=== PATIENT | female | born 1935 | race Caucasian/White ===

== ENCOUNTER 2018-08-09 06:26 | Emergency (ER) | payer MEDICARE, BC ==
[2018-08-09 06:31] VITALS: BP 166/84
[2018-08-09] MEDS ORDERED: Oxymetazoline 0.05% Nasal Spray 15 ML Bottle NAS ONE (07:08)
--- NOTE | 2018-08-09 07:13 | EDM.PDOC ---
ED HPI GENERAL MEDICAL PROBLEM - General Chief Complaint: ENT Problem Stated Complaint: [facility] Time Seen by Provider: 08/09/18 07:02 Source of Information: Reports: Patient History Limitations: Reports: No Limitations - History of Present Illness INITIAL COMMENTS - FREE TEXT/NARRATIVE: 83-year-old female presents to the ED with bleeding from the left naris. She states that she blew her nose fairly hard about 0530 hrs. this morning and it started bleeding would not stop. She's had similar events over the last 2-3 days with nasal growing causing some transient bleeding but she's always been able to get it stopped. She takes baby aspirin only per day. She is relatively hypotensive at the time seen in the ER. She reports blood is running down the back of her throat. He also will run out the right side of her nares at times. Denies any nausea or vomiting. No recent nasal surgery. She reports she has been bothered by cold and sinus congestion for the last 10 days Onset: Today Onset Date: 08/09/18 Onset Time: 05:30 Duration: Minutes: Location: Reports: Face (Left anterior nosebleed.) Quality: Reports: Other Severity: Moderate (No pain) Improves with: Reports: None, Other (Nasal clamp) Worsens with: Reports: None Context: Reports: Other (Spontaneous anterior nasal hemorrhage after blowing her nose hard this morning). Denies: Activity, Exercise, Lifting, Sick Contact , Trauma Associated Symptoms: Reports: No Other Symptoms Treatments RN UTILIZATION MANAGEMENT UM: Reports: Other (see below) (None.) - Related Data Allergies Allergy/AdvReac Type Severity Reaction Status Date / Time Iodinated Contrast- Oral and Allergy Swelling Verified 08/09/18 06:48 IV Dye lidocaine Allergy Swelling Verified 08/09/18 06:31 Penicillins Allergy Hives Verified 08/09/18 06:31 eggs Allergy Hives Uncoded 03/25/15 14:32 Home Meds: Home Meds Aspirin [Lo-Dose Aspirin EC] 81 mg PO DAILY 08/09/18 [History] Azithromycin [Zithromax] 250 mg PO DAILY #8 tab 08/09/18 [Rx] Bacitracin/Polymyxin B Sulfate [Polysporin Ointment] 15 gm TP DAILY #1 tube [Rx] Diltiazem HCl [Diltiazem ER] 120 mg PO DAILY 08/09/18 [History] Levothyroxine [Synthroid] 88 mcg PO ACBREAKFAST 08/09/18 [History] Vit C/E/Zn/Coppr/Lutein/Zeaxan [Preservision Areds 2 Softgel] 1 each PO DAILY [History] atorvaSTATin Calcium [Atorvastatin Calcium] 20 mg PO DAILY 08/09/18 [History] Past Medical History Cardiovascular History: Reports: High Cholesterol Respiratory History: Reports: Sleep Apnea Gastrointestinal History: Reports: GERD Other [employer] History: hysterectomy Endocrine/Metabolic History: Reports: Hypothyroidism - Past Surgical History Female Surgical History: Reports: Hysterectomy Social & Family History - Tobacco Use Smoking Status *Q: Current Status Unknown - Living Situation & Occupation Living situation: Reports: Occupation: Retired ED ROS ENT - Review of Systems Review Of Systems: See Below Constitutional: Reports: Fatigue, Decreased Appetite. Denies: Fever, Chills, Malaise, Weight Loss HEENT: Reports: Nosebleed (See history of present illness) Respiratory: Reports: Shortness of Breath (Mild CB DD by history), Cough Cardiovascular: Reports: Blood Pressure Problem. Denies: Chest Pain, Claudication, Dyspnea on Exertion, Edema, Lightheadedness, Orthopnea (Does have elevated blood pressure chronically) Endocrine: Reports: Fatigue GI/Abdominal: Reports: Constipation (Occasional problems), Other : Reports: Frequency (GERD.), Incontinence Musculoskeletal: Reports: Joint Pain (Urge and stress components arthritic changes in knees hips neck low back shoulders at times) Skin: Reports: No Symptoms Neurological: Reports: No Symptoms Psychiatric: Reports: No Symptoms Hematologic/Lymphatic: Reports: No Symptoms Immunologic: Reports: No Symptoms ED EXAM, ENT - Physical Exam Exam: See Below Exam Limited By: No Limitations General Appearance: Alert, Anxious, Mild Distress, Other (Has a nasal clamp in place and using a face cloth to wipe of blood coming from the left naris. Vital signs reveal resting pulse of 10 9/m. BP is elevated 166/84. O2 sats are 93% on room air.) Eye Exam: Bilateral Eye: Normal Inspection Nose: Active Bleeding (There is very active bleeding coming from the left nasal septum. The source of bleeding is not apparent because of the amount of blood present. No blood noted in the right anterior and posterior nares. There is blood running down the posterior oropharynx on the left side.) Mouth/Throat: Other Head: Atraumatic (Fresh blood running down the left posterior oropharynx.), Normocephalic Neck: Normal Inspection, Supple, Non-Tender, Full Range of Motion. No: Lymphadenopathy (L), Lymphadenopathy (R) Respiratory/Chest: Respiratory Distress (Mild tachypnea), Decreased Breath Sounds (Breasts cells are minimally decreased in both bases.) Cardiovascular: Regular Rate, Rhythm, No Edema, No Gallop, No Murmur, No Rub Back: Normal Inspection, Full Range of Motion. No: CVA Tenderness (L), CVA Tenderness (R) Extremities: Normal Inspection, Normal Range of Motion, Non-Tender, No Pedal Edema Neurological: Alert, Oriented, CN II-XII Intact, Normal Cognition Psychiatric: Anxious Skin: Warm, Dry (Mild anxious), Intact, Normal Color, No Rash ED ENT PROCEDURES - Epistaxis Procedure Indication: Epistaxis, Uncontrolled Recent anticoagulants/antiplatlets: No Uncontrolled HTN: No Recent septal/nasal surgery: No Site of bleeding: Left Nare, Anterior Topical Meds: Topical Cocaine (Mixed with Afrin. Nose is back for one half hour with Afrin/cocaine-soaked [place] to bring the bleeding under control. In the nasal septum was cauterized with silver nitrate and brought the bleeding under control) Chemical cautery: Silver Nitrate Topical EKG INTERPRETATION EKG Date: 08/09/18 Time: 06:38 Rhythm: NSR Rate (Beats/Min): 96 [place]: Normal P-Wave: Enlarged (Consider left atrial hypertrophy pattern) QRS: Other (Decreased reveals each throughout both limb and precordial leads compose COPD pattern. There is early R-wave transition V2 suggesting right ventricular hypertrophy pattern versus septal hypertrophy. 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.) ST-T: Other (There is mild flattening of the T-wave in lead 3 nonspecific finding) QT: Normal EKG Interpretation Comments: Abnormal ECG Course - Vital Signs Last Recorded V/S: Last Vital Signs Temp 36.6 C 08/09/18 06:28 Pulse 109 H 08/09/18 06:28 Resp 19 08/09/18 06:28 BP 166/84 H 08/09/18 06:28 Pulse Ox 93 L 08/09/18 06:28 - Orders/Labs/Meds Meds: Medications Discontinued Medications Generic Name Dose Route Start Last Admin Trade Name Roger PRN Reason Stop Dose Admin Cocaine HCl 4 ml 08/09/18 07:08 08/09/18 07:15 Cocaine Hcl TOP 08/09/18 07:09 4 ml ONETIME ONE Administration Oxymetazoline HCl 15 ml 08/09/18 07:08 08/09/18 07:15 Afrin Original 0.05% Nasal [place] TEENA 08/09/18 07:09 15 ml ONETIME ONE Administration - Radiology Interpretation Free Text/Narrative:: 83-year-old lady presents to the ED with a left anterior nasal hemorrhage since 5:30 this morning. This occurred after blowing her nose aggressively. Bleeding off and on for the last 2-3 days. She apparently has a history of paroxysmal atrial fib. ECG this morning shows diffuse low voltage in both the precordial limb leads. She is in sinus rhythm. There is early R-wave transition in V2 suggesting right ventricular hypertrophy/septal hypertrophy pattern. 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 - Re-Assessments/Exams Free Text/Narrative Re-Assessment/Exam: 08/09/18 07:22 initial review of the nose showed active bleeding from the entire left nasal septum . I therefore packed the nose with [id number] Afrin and cocaine 4%. The back is to remain in place for the next 20-30 minutes and then will remove it and look to see if we can find a source to cauterize. 08/09/18 08:10: The Afrin/cocaine pack was removed. Bleeding has come under control and I could see where was coming from from the anterior nasal septum. This area was cauterized with silver nitrate. I will recheck her in 10 minutes time to make sure the bleeding has come under control. 08/09/18 08:32 no further bleeding is evident. Going to place the patient on a Z -Kobi she does have some sinus congestion with a cough. Use Polysporin ointment on the end of a Q-tip up in her nose every night at bedtime for the next week to try and prevent further nosebleeds. Follow-up as needed. Departure - Departure Time of Disposition: 08:32 Disposition: Home, Self-Care 01 Condition: Fair Clinical Impression: Epistaxis, recurrent, Bronchitis, Epistaxis Sinusitis, acute Qualifiers: Sinusitis location: maxillary Recurrence: non-recurrent Qualified Code(s): J01.00 - Acute maxillary sinusitis, unspecified - Discharge Information *PRESCRIPTION DRUG MONITORING PROGRAM REVIEWED*: Not Applicable *COPY OF PRESCRIPTION DRUG MONITORING REPORT IN PATIENT [place]ET[place]: Not Applicable Prescriptions: Azithromycin [Zithromax] 250 mg PO DAILY #8 tab Bacitracin/Polymyxin B Sulfate [Polysporin Ointment] 15 gm TP DAILY #1 tube Referrals: Delphine Perera MD [Primary Care Provider] - Forms: ED Department Discharge Additional Instructions: Evaluation in the emergency department today in regards to persistent bleeding from the left side of your nose since awakening this morning. Bleeding was substantial at the time of my initial assessment I could not tell where was coming from. Therefore the nose was packed with Afrin/cocaine packing for half hour to bring the bleeding under control which he did well. I was unable to visualize where the bleeding was coming from from the anterior nasal septum on the left side and this area was cauterized with silver nitrate. Try not to blow your nose or irritation nose in any fashion or form for the next [address] Polysporin ointment inside each side of your nose at bedtime for the next week with the aid of a Q-tip. Oral antibiotic is to be azithromycin 250 mg once daily for the next 8 days to clear up sinus infection. Colistin medication in her sleeping quarters may help as well prevent further bleeding. Of course return to the ED or follow-up with personal care physician if any further bleeding becomes occur
== END 2018-08-09 08:51 | disposition home or self-care (01) ==
LOC: JD.ED 06:26
DX: R04.0 Epistaxis (principal); J40 Bronchitis, not specified as acute or chronic; J01.00 Acute maxillary sinusitis, unspecified; E78.00 Pure hypercholesterolemia, unspecified; E03.9 Hypothyroidism, unspecified; K21.9 Gastro-esophageal reflux disease without esophagitis; Z88.0 Allergy status to penicillin; Z91.012 Allergy to eggs; Z79.82 Long term (current) use of aspirin; Z79.899 Other long term (current) drug therapy
CPT/HCPCS: 30901; 99283; A9270; 30905; 93010

== ENCOUNTER 2019-05-28 12:18 | Inpatient (IN) | payer MEDICARE, BC ==
[2019-05-28] MEDS ORDERED: Sodium Chloride 0.9% 10 ML Syringe FLUSH PRN (12:42)
[2019-05-28] MEDS ORDERED: Diltiazem 50 MG/10 ML SDV IVPUSH ONE ×5 (12:51→18:20)
[2019-05-28] MEDS: Sodium Chloride 0.9% 500 ML IV SCH ×2 (13:16→21:34)
[2019-05-28] MEDS ORDERED: Ondansetron 4 MG/2 ML SDV IVPUSH ONE ×2 (13:20→17:39)
--- NOTE | 2019-05-28 13:45 | EDM.PDOC ---
ED HPI GENERAL MEDICAL PROBLEM - General Chief Complaint: Gastrointestinal Problem Stated Complaint: HIGH BP/VOMITING Time Seen by Provider: 05/28/19 12:42 Source of Information: Reports: Patient, Family, RN Notes Reviewed - History of Present Illness INITIAL COMMENTS - FREE TEXT/NARRATIVE: 84-year-old lady has been brought in by daughter with symptoms of nausea vomiting status post hernia surgery 2 days ago. When hooked up to cardiac exercise specialist she was found to be in A. fib with RVR. Not aware of palpitations. Does have generalized weakness. No chest pain or shortness of breath. She has had A. fib or flutter at least once in the past. She had bilateral lower abdominal hernia surgery 2 days ago done as an outpatient [facility]. The surgery is reported to have gone well. She was released home later that day. She started with nausea last evening last evening, worse today. She had been eating small amounts of food and drinking fluids okay with very little intake today. Mild intermittent abdominal pain and cramping but no severe abdominal pain at this time. Treatments SPECIMEN COLLECTOR: Reports: Other (see below) Other Treatments SPECIMEN COLLECTOR: no morning meds today Right Abdomen Pain Score (Numeric/FACES): 5 - Related Data Allergies Allergy/AdvReac Type Severity Reaction Status Date / Time Iodinated Contrast Media Allergy Swelling Verified 08/09/18 06:48 [Iodinated Contrast- Oral and IV Dye] lidocaine Allergy Swelling Verified 08/09/18 06:31 Penicillins Allergy Hives Verified 08/09/18 06:31 eggs Allergy Hives Uncoded 03/25/15 14:32 Home Meds: Home Meds Aspirin [Lo-Dose Aspirin EC] 81 mg PO DAILY 08/09/18 [History] Levothyroxine [Synthroid] 100 mcg PO ACBREAKFAST 08/09/18 [History] dilTIAZem HCl [Diltiazem ER] 180 mg PO DAILY 08/09/18 [History] Acetaminophen [Tylenol Arthritis] 1 tab PO Q8H PRN 05/28/19 [History] Acetaminophen [Tylenol] 500 mg PO Q6H PRN 05/28/19 [History] Calcium Carb, Citrate/Vit D3 [Calcium + D3 ER Tablet] 2 tab PO BEDTIME 05/28/19 [History] Hydrocodone/Acetaminophen [Hydrocodon-Acetaminophen 5-325] 5 - 325 mg PO Q6H PRN 05/28/19 [History] Ibuprofen [Motrin] 200 mg PO Q6H PRN 05/28/19 [History] Multivitamins [Tab-A-Santiago] 1 tab PO DAILY 05/28/19 [History] Rosuvastatin Calcium [Crestor] 40 mg PO BEDTIME 05/28/19 [History] Past Medical History Cardiovascular History: Reports: Afib, High Cholesterol, Hypertension Respiratory History: Reports: Sleep Apnea Other Respiratory History: wears o2 at noc Gastrointestinal History: Reports: GERD Other MANAGER BEHAVIORAL History: hysterectomy Endocrine/Metabolic History: Reports: Hypothyroidism - Past Surgical History Female Surgical History: Reports: Hysterectomy Social & Family History - Tobacco Use Used Tobacco, but Quit: Yes Month/Year Tobacco Last Used: 6 yr - Caffeine Use Caffeine Use: Reports: Coffee - Recreational Drug Use Recreational Drug Use: No - Living Situation & Occupation Living situation: Reports: Occupation: Retired ED ROS GENERAL - Review of Systems Review Of Systems: See Below Constitutional: Denies: Fever, Chills, Diaphoresis HEENT: Reports: Other (Mouth does feel mildly dry). Denies: Throat Pain Respiratory: Reports: Shortness of Breath. Denies: Cough Cardiovascular: Denies: Chest Pain (Mild) GI/Abdominal: Reports: Abdominal Pain, Distension (Mild), Nausea (Mild intermittent), Vomiting. Denies: Diarrhea Musculoskeletal: Reports: No Symptoms Skin: Reports: No Symptoms Neurological: Reports: Weakness. Denies: Trouble Speaking (Analyzed) ED EXAM, GI/ABD - Physical Exam Exam: See Below General Appearance: Alert, Mild Distress Eyes: Bilateral: Normal Appearance Throat/Mouth: Other Head: Atraumatic (Oral mucosa is somewhat dry). No: Facial Swelling Neck: Supple, Full Range of Motion, Other Respiratory/Chest: No Respiratory Distress (No JVD), Lungs Clear, Normal Breath Sounds. No: Rales, Rhonchi, Wheezing Cardiovascular: Tachycardia, Irregularly Irregular GI/Abdominal Exam: Soft, Other. No: Guarding (Very mild diffuse tenderness), Rebound Extremities: Normal Inspection, Normal Range of Motion. No: Leg Pain, Increased Warmth, Redness Neurological: Alert, Oriented, No Motor/Sensory Deficits Skin Exam: Warm, Dry, Normal Color EKG INTERPRETATION EKG Date: 05/28/19 Rhythm: A-Fib [place]: Normal QRS: Other (Low voltage precordial leads) ST-T: Other (Mild ST changes) Course - Vital Signs Last Recorded V/S: Last Vital Signs Temp 97.5 F 05/28/19 12:36 Pulse 191 H 05/28/19 12:36 Resp 22 H 05/28/19 12:36 BP 153/108 H 05/28/19 12:36 Pulse Ox 90 L 05/28/19 12:36 - Orders/Labs/Meds Orders: Active Orders 24 hr Category Date Time Status Admission Status [Patient Status] [ADT] Routine ADT 05/28/19 19:51 Active EKG 12 Lead [EKG Documentation Completion] [RC] STAT Care 05/28/19 12:42 Active Peripheral IV Care [RC] . DIRECTED Care 05/28/19 12:43 Active Diltiazem 125 mg Med 05/28/19 19:15 Active Sodium Chloride 0.9% [Normal Saline] 100 ml IV TITRATE Scopolamine [Transderm-Scop] Med 05/28/19 19:55 Active 1.5 mg TRDERM Q72H PRN Sodium Chloride 0.9% [Normal Saline] 500 ml Med 05/28/19 19:53 Active IV .BOLUS Sodium Chloride 0.9% [Normal Saline] 500 ml Med 05/28/19 13:15 Active IV ASDIRECTED Sodium Chloride 0.9% [Saline Flush] Med 05/28/19 12:42 Active 10 ml FLUSH ASDIRECTED PRN Peripheral IV Insertion Adult [OM.PC] Stat Oth 05/28/19 12:42 Ordered Medication Orders Sodium Chloride (Normal Saline) 500 mls @ 999 mls/hr IV ASDIRECTED AREN Last Admin: 05/28/19 13:16 Dose: 999 mls/hr Diltiazem HCl 125 mg/ Sodium (Chloride) 125 mls @ 5 mls/hr IV TITRATE AREN; Protocol Last Admin: 05/28/19 19:34 Dose: 5 mg/hr, 5 mls/hr Sodium Chloride (Normal Saline) 500 mls @ 500 mls/hr IV .BOLUS ONE Stop: 05/28/19 20:52 Last Admin: 05/28/19 20:04 Dose: 500 mls/hr Scopolamine (Transderm-Scop) 1.5 mg TRDERM Q72H PRN PRN Reason: Nausea/Vomiting Last Admin: 05/28/19 20:08 Dose: 1.5 mg Sodium Chloride (Saline Flush) 10 ml FLUSH ASDIRECTED PRN PRN Reason: Keep Vein Open Last Admin: 05/28/19 12:57 Dose: 10 ml Labs: Laboratory Tests 05/28/19 05/28/19 05/28/19 Range/Units 12:40 12:40 12:40 WBC 14.45 H (3.98-10.04) K/mm3 RBC 4.82 (3.98-5.22) M/mm3 Hgb 14.4 (11.2-15.7) gm/dl Hct 44.8 (34.1-44.9) % MCV 92.9 (79.4-94.8) fl MCH 29.9 (25.6-32.2) pg MCHC 32.1 L (32.2-35.5) g/dl RDW Std Deviation 50.2 H (36.4-46.3) fL Plt Count 396 H (182-369) K/mm3 MPV 10.2 (9.4-12.3) fl Neut % (Auto) 75.9 H (34.0-71.1) % Lymph % (Auto) 7.6 L (19.3-51.7) % [place] % (Auto) 15.9 H (4.7-12.5) % Eos % (Auto) 0.3 L (0.7-5.8) Baso % (Auto) 0.1 (0.1-1.2) % Neut # (Auto) 10.95 H (1.56-6.13) K/mm3 Lymph # (Auto) 1.10 L (1.18-3.74) K/mm3 [place] # (Auto) 2.30 H (0.24-0.36) K/mm3 Eos # (Auto) 0.05 (0.04-0.36) K/mm3 Baso # (Auto) 0.02 (0.01-0.08) K/mm3 Manual Slide Review Abnormal smear PT 10.9 (9.7-12.0) SECONDS INR 1.00 Sodium 139 (136-145) mEq/L Potassium 3.9 (3.5-5.1) mEq/L Chloride 96 L (98-107) mEq/L Carbon Dioxide 31 (21-32) mEq/L Anion Gap 15.9 H (5-15) BUN 24 H (7-18) mg/dL Creatinine 1.6 H (0.55-1.02) mg/dL Est Cr Clr Drug Dosing 20.88 mL/min Estimated GFR (MDRD) 31 (>60) mL/min BUN/Creatinine Ratio 15.0 (14-18) Glucose 170 H (83-115) mg/dL Calcium 10.4 H (8.5-10.1) mg/dL Total Bilirubin 0.7 (0.2-1.0) mg/dL AST 19 (15-37) U/L ALT 21 (14-59) U/L Alkaline Phosphatase 75 (46-116) U/L Troponin I < 0.017 (0.00-0.056) ng/mL NT-Pro-B Natriuret Pep (0-450) pg/mL Total Protein 7.9 (6.4-8.2) g/dl Albumin 4.1 (3.4-5.0) g/dl Globulin 3.8 gm/dL Albumin/Globulin Ratio 1.1 (1-2) Lipase (73-393) U/L 05/28/19 05/28/19 Range/Units 12:40 12:40 WBC (3.98-10.04) K/mm3 RBC (3.98-5.22) M/mm3 Hgb (11.2-15.7) gm/dl Hct (34.1-44.9) % MCV (79.4-94.8) fl MCH (25.6-32.2) pg MCHC (32.2-35.5) g/dl RDW Std Deviation (36.4-46.3) fL Plt Count (182-369) K/mm3 MPV (9.4-12.3) fl Neut % (Auto) (34.0-71.1) % Lymph % (Auto) (19.3-51.7) % [place] % (Auto) (4.7-12.5) % Eos % (Auto) (0.7-5.8) Baso % (Auto) (0.1-1.2) % Neut # (Auto) (1.56-6.13) K/mm3 Lymph # (Auto) (1.18-3.74) K/mm3 [place] # (Auto) (0.24-0.36) K/mm3 Eos # (Auto) (0.04-0.36) K/mm3 Baso # (Auto) (0.01-0.08) K/mm3 Manual Slide Review PT (9.7-12.0) SECONDS INR Sodium (136-145) mEq/L Potassium (3.5-5.1) mEq/L Chloride (98-107) mEq/L Carbon Dioxide (21-32) mEq/L Anion Gap (5-15) BUN (7-18) mg/dL Creatinine (0.55-1.02) mg/dL Est Cr Clr Drug Dosing mL/min Estimated GFR (MDRD) (>60) mL/min BUN/Creatinine Ratio (14-18) Glucose (83-115) mg/dL Calcium (8.5-10.1) mg/dL Total Bilirubin (0.2-1.0) mg/dL AST (15-37) U/L ALT (14-59) U/L Alkaline Phosphatase (46-116) U/L Troponin I (0.00-0.056) ng/mL NT-Pro-B Natriuret Pep 765 H (0-450) pg/mL Total Protein (6.4-8.2) g/dl Albumin (3.4-5.0) g/dl Globulin gm/dL Albumin/Globulin Ratio (1-2) Lipase 136 (73-393) U/L Meds: Medications Generic Name Dose Route Start Last Admin Trade Name Freq PRN Reason Stop Dose Admin Sodium Chloride 500 mls @ 999 mls/hr 05/28/19 13:15 05/28/19 13:16 Normal Saline IV 999 mls/hr ASDIRECTED AREN Administration Diltiazem HCl 125 mg/ Sodium 125 mls @ 5 mls/hr 05/28/19 19:15 05/28/19 19:34 Chloride IV 5 mg/hr TITRATE AREN 5 mls/hr Administration Protocol 5 MG/HR Sodium Chloride 500 mls @ 500 mls/hr 05/28/19 19:53 05/28/19 20:04 Normal Saline IV 05/28/19 20:52 500 mls/hr .BOLUS ONE Administration Scopolamine 1.5 mg 05/28/19 19:55 05/28/19 20:08 Transderm-Scop TRDERM 1.5 mg Q72H PRN Administration Nausea/Vomiting Sodium Chloride 10 ml 05/28/19 12:42 05/28/19 12:57 Saline Flush FLUSH 10 ml ASDIRECTED PRN Administration Keep Vein Open Discontinued Medications Generic Name Dose Route Start Last Admin Trade Name Freq PRN Reason Stop Dose Admin Diltiazem HCl 20 mg 05/28/19 12:51 05/28/19 12:56 Cardizem IVPUSH 05/28/19 12:52 20 mg ONETIME ONE Administration Diltiazem HCl 5 mg 05/28/19 14:05 05/28/19 14:13 Cardizem IVPUSH 05/28/19 14:06 5 mg ONETIME ONE Administration Diltiazem HCl 5 mg 05/28/19 14:48 05/28/19 14:48 Cardizem IVPUSH 05/28/19 14:49 5 mg ONETIME ONE Administration Diltiazem HCl 5 mg 05/28/19 15:35 05/28/19 15:40 Cardizem IVPUSH 05/28/19 15:36 5 mg ONETIME ONE Administration Diltiazem HCl 180 mg 05/28/19 17:19 05/28/19 18:26 Cardizem Cd PO 05/28/19 17:20 Not Given ONETIME ONE Diltiazem HCl 10 mg 05/28/19 18:20 05/28/19 18:26 Cardizem IVPUSH 05/28/19 18:21 10 mg ONETIME ONE Administration Metoclopramide HCl 2.5 mg 05/28/19 15:35 05/28/19 15:45 Reglan IVPUSH 05/28/19 15:36 2.5 mg ONETIME ONE Administration Ondansetron HCl 4 mg 05/28/19 13:20 05/28/19 13:25 Zofran IVPUSH 05/28/19 13:21 4 mg ONETIME ONE Administration Ondansetron HCl 4 mg 05/28/19 17:39 05/28/19 17:43 Zofran IVPUSH 05/28/19 17:40 4 mg ONETIME ONE Administration - Re-Assessments/Exams Free Text/Narrative Re-Assessment/Exam: 05/28/19 13:58 Patient did come in with A. fib RVR with heart rates running 168 to the 180s. Initial blood pressure was good in the 150s systolic range but then dropped immediately down to 110 and at one point around 86 systolic after the initial 5 mg diltiazem IV. Fluid bolus of normal saline 500 male was started and blood pressure did immediately stabilize. Heart rate has gradually slowed down to the 110-120 range. 14:00. patient has converted back to normal sinus rhythm, rate 106-110. We'll repeat EKG at this time. 16:00 nurse's have slowly given more diltiazem IV, her heart rate did slow to as low as 98 but now back into the 105-110 range. We are going to try drinking fluids take her oral Cardizem if possible to keep that working for her. 18:00. She did take a few small sips of water, then vomited immediately after drinking some Jell-O. She appear to have an ileus, does not look like it is going to be safe for her to go home. Flat and upright of her abdomen has been done which does not show air-fluid levels. Continues to have no significant abdominal pain while here in the ED. Rate now has gone back up to the 110 to 1: 15 range. Have ordered another 10 mg diltiazam IV. She may need to be put on a slow diltiazem drip until able to tolerate oral fluids and meds. 05/28/19 19:09. Rate has slowed down to about 100 after diltiazem 10 mg IV. As noted above she has not been able to take even Jell-O without vomiting so it doesn't look like she'll be able to take her Cardizem today. Did go back up to about 115 after the initial dosage of Cardizem IV. Not clear if she really did convert back to sinus rhythm or if this is flutter with the 2-1 and variable block. This is now looking more like flutter with her being unable to maintain a rate below 100. Therefore Cardizem drip at 5 mg per hour will be started at this time. Will be admitted to ICU for further treatment. Departure - Departure Time of Disposition: 19:12 Disposition: Admitted As Inpatient 64 Condition: Serious Clinical Impression: Vomiting, Ileus, Atrial flutter with rapid ventricular response - Discharge Information Referrals: Delphine Perera MD [Primary Care Provider] - Forms: ED Department Discharge Sepsis Event Note - Evaluation Sepsis Screening Result: No Definite Risk - Focused Exam Vital Signs: Vital Signs Temp Pulse Resp BP Pulse Ox 05/28/19 12:36 97.5 F 191 H 22 H 153/108 H 90 L Date Exam was Performed: 05/28/19 Time Exam was Performed: 20:12 ED Communication - Discussed Case With (1) Discussed Case With (1): Admitting Provider (Dr Michel, decision to admit at about 18:30.) - My Orders Last 24 Hours: My Active Orders 05/28/19 12:42 EKG 12 Lead [EKG Documentation Completion] [RC] STAT Sodium Chloride 0.9% [Saline Flush] 10 ml FLUSH ASDIRECTED PRN Peripheral IV Insertion Adult [OM.PC] Stat 05/28/19 12:43 Peripheral IV Care [RC] . DIRECTED 05/28/19 13:15 Sodium Chloride 0.9% [Normal Saline] 500 ml IV ASDIRECTED 05/28/19 19:15 Diltiazem 125 mg Sodium Chloride 0.9% [Normal Saline] 100 ml IV TITRATE 05/28/19 19:51 Admission Status [Patient Status] [ADT] Routine - Assessment/Plan Last 24 Hours: My Active Orders 05/28/19 12:42 EKG 12 Lead [EKG Documentation Completion] [RC] STAT Sodium Chloride 0.9% [Saline Flush] 10 ml FLUSH ASDIRECTED PRN Peripheral IV Insertion Adult [OM.PC] Stat 05/28/19 12:43 Peripheral IV Care [RC] . DIRECTED 05/28/19 13:15 Sodium Chloride 0.9% [Normal Saline] 500 ml IV ASDIRECTED 05/28/19 19:15 Diltiazem 125 mg Sodium Chloride 0.9% [Normal Saline] 100 ml IV TITRATE 05/28/19 19:51 Admission Status [Patient Status] [ADT] Routine
--- NOTE | 2019-05-28 14:19 | CR ---
Chest: Portable view of the chest was obtained. Comparison: Prior chest x-ray of 07/16/13. Slight atelectasis within the right lung base is seen. Lungs otherwise are clear. Heart is mildly enlarged. Tortuous thoracic aorta is seen. Bony structures are grossly intact. Impression: 1. Mild right basilar atelectasis. 2. Cardiomegaly. 3. Nothing acute is appreciated on portable chest x-ray. Diagnostic code #2 This report was dictated in [place] Standard Time
--- NOTE | 2019-05-28 14:45 | CR ---
Abdomen: Supine and upright views of the abdomen were obtained. Comparison: Previous abdominal x-ray of 07/13/13. Vascular calcification is noted. Bowel gas pattern appears normal. Calcifications are seen within the pelvis most likely representing phleboliths. Equivocal calcification within the upper right kidney possibly due to nonobstructing stone. No free air is identified. Bony structures appear within normal limits for the patient's age. Impression: 1. Findings as noted above. 2. Nothing acute is appreciated. Diagnostic code #2 This report was dictated in [place] Standard Time
[2019-05-28] MEDS ORDERED: Metoclopramide 10 MG/2 ML SDV IVPUSH ONE (15:35)
[2019-05-28] MEDS ORDERED: Diltiazem 180 MG Cap.CD PO ONE (17:19)
[2019-05-28] MEDS ORDERED: Diltiazem 125 MG in Sodium Chloride 0.9% 100 ML IV SCH (19:15)
[2019-05-28] MEDS ORDERED: Sodium Chloride 0.9% 500 ML IV ONE (19:53)
[2019-05-28] MEDS ORDERED: Scopolamine 1.5 MG Transdermal Patch TRDERM PRN (19:55)
[2019-05-28] MEDS ORDERED: Acetaminophen 650 MG Supp RECTAL PRN (20:32)
[2019-05-28] MEDS ORDERED: Sodium Chloride 0.9% 1,000 ML IV SCH (20:45)
--- NOTE | 2019-05-28 20:50 | PCM.HP.2 ---
H&P History of Present Illness - General Date of Service: 05/28/19 Admit Problem/Dx: Admission Diagnosis/Problem Admission Diagnosis/Problem Atrial flutter with rapid ventricular response - History of Present Illness Initial Comments - Free Text/Narative: 84-year-old female post to ventral abdominal wall surgeries ventral hernia repair x2 2 days ago presented to the emergency room with 1 day of nausea and vomiting. Patient states that she did well on Saturday, the day of surgery, and that evening. Saturday, yesterday she developed nausea and vomiting. She states she could not keep anything down. She denies any fever or chills. She states that her abdominal pain is mild and more like a soreness. When she presented to the emergency room she was found to be in atrial fibrillation. Patient has a history of postsurgical atrial fibrillation after procedure 3 years ago. Patient was found here to be in A. fib with RVR with a ventricular rate of 188 bpm. Patient was given multiple doses of IV diltiazem with ultimate conversion back to sinus rhythm but continue rate between 106 and 115. Patient was then placed on a Cardizem drip. She was given 1 500 mL bolus and the rest of the bag was run while in the emergency room. Patient was unable to even keep down Jell-O and it was decided to admit her. Patient is on nocturnal O2 and did take 2 ibuprofen yesterday. Patient states that she is passing gas occasionally. She quit smoking in 2011. She smoked 1/2 pack/day for approximately 50 years. She has been diagnosed with COPD. She drinks a couple of beers a night and her last drink was Saturday, 4 days ago. Emergency room labs: WBC 14.45, hemoglobin 14.4, platelets 396, sodium 139, potassium 3.9, chloride 96, bicarb 31, anion gap 16, BUN 24, creatinine 1.6, troponin less than 0.017, lipase 136, proBNP 765. Abdominal x-ray findings show normal bowel gas pattern. Right Abdomen Pain Score (Numeric/FACES): 5 - Related Data Allergies/Adverse Reactions: Allergies Allergy/AdvReac Type Severity Reaction Status Date / Time Iodinated Contrast Media Allergy Swelling Verified 05/28/19 21:29 [Iodinated Contrast- Oral and IV Dye] lidocaine Allergy Swelling Verified 05/28/19 21:29 Penicillins Allergy Hives Verified 05/28/19 21:29 eggs Allergy Hives Uncoded 05/28/19 21:29 Home Medications: Home Meds Aspirin [Lo-Dose Aspirin EC] 81 mg PO DAILY 08/09/18 [History] Levothyroxine [Synthroid] 100 mcg PO ACBREAKFAST 08/09/18 [History] dilTIAZem HCl [Diltiazem ER] 180 mg PO DAILY 08/09/18 [History] Acetaminophen [Tylenol Arthritis] 1 tab PO Q8H PRN 05/28/19 [History] Acetaminophen [Tylenol] 500 mg PO Q6H PRN 05/28/19 [History] Calcium Carb, Citrate/Vit D3 [Calcium + D3 ER Tablet] 2 tab PO BEDTIME 05/28/19 [History] Hydrocodone/Acetaminophen [Hydrocodon-Acetaminophen 5-325] 5 - 325 mg PO Q6H PRN 05/28/19 [History] Ibuprofen [Motrin] 200 mg PO Q6H PRN 05/28/19 [History] Multivitamins [Tab-A-[place]] 1 tab PO DAILY 05/28/19 [History] Rosuvastatin Calcium [Crestor] 40 mg PO BEDTIME 05/28/19 [History] Past Medical History Cardiovascular History: Reports: Afib, High Cholesterol, Hypertension Respiratory History: Reports: Sleep Apnea Other Respiratory History: wears o2 at [facility] Gastrointestinal History: Reports: GERD Other OB/BYN History: hysterectomy Endocrine/Metabolic History: Reports: Hypothyroidism - Past Surgical History Female Surgical History: Reports: Hysterectomy Social & Family History - Tobacco Use Used Tobacco, but Quit: Yes Month/Year Tobacco Last Used: 6 yr - Caffeine Use Caffeine Use: Reports: Coffee - Recreational Drug Use Recreational Drug Use: No - Living Situation & Occupation Living situation: Reports: Occupation: Retired H&P Review of Systems - Review of Systems: Review Of Systems: Comprehensive ROS is negative, except as noted in HPI. Exam - Exam Exam: See Below - Vital Signs Vital Signs: Last Vital Signs Temp 97.5 F 05/28/19 12:36 Pulse 191 H 05/28/19 12:36 Resp 22 H 05/28/19 12:36 BP 153/108 H 05/28/19 12:36 Pulse Ox 90 L 05/28/19 12:36 Weight: 168 lb - Exam Quality Assessment: Supplemental Oxygen General: Alert, Oriented HEENT: Conjunctiva Clear, Normal Nasal Septum, Posterior Pharynx Clear Neck: Supple, Trachea Midline, 2 Lungs: Clear to Auscultation, Normal Respiratory Effort Cardiovascular: Irregular Rhythm, Tachycardia GI/Abdominal Exam: Soft, No Organomegaly, No Distention, Tender (Mild diffuse tenderness without guarding or rebound.), Abnormal Bowel Sounds (Diminished) Skin: Warm, Dry, Intact Neuro Extensive - Mental Status: Alert, Oriented x3, Normal Mood/Affect, Normal Cognition, Memory Intact Neuro Extensive - Motor, Sensory, Reflexes: CN II-XII Intact Psychiatric: Alert, Normal Affect, Normal Mood - Patient Data Lab Results Last 24 hrs: Laboratory Results - last 24 hr 05/28/19 05/28/19 05/28/19 Range/Units 12:40 12:40 12:40 WBC 14.45 H (3.98-10.04) K/mm3 RBC 4.82 (3.98-5.22) M/mm3 Hgb 14.4 (11.2-15.7) gm/dl Hct 44.8 (34.1-44.9) % MCV 92.9 (79.4-94.8) fl MCH 29.9 (25.6-32.2) pg MCHC 32.1 L (32.2-35.5) g/dl RDW Std Deviation 50.2 H (36.4-46.3) fL Plt Count 396 H (182-369) K/mm3 MPV 10.2 (9.4-12.3) fl Neut % (Auto) 75.9 H (34.0-71.1) % Lymph % (Auto) 7.6 L (19.3-51.7) % [place] % (Auto) 15.9 H (4.7-12.5) % Eos % (Auto) 0.3 L (0.7-5.8) Baso % (Auto) 0.1 (0.1-1.2) % Neut # (Auto) 10.95 H (1.56-6.13) K/mm3 Lymph # (Auto) 1.10 L (1.18-3.74) K/mm3 [place] # (Auto) 2.30 H (0.24-0.36) K/mm3 Eos # (Auto) 0.05 (0.04-0.36) K/mm3 Baso # (Auto) 0.02 (0.01-0.08) K/mm3 Manual Slide Review Abnormal smear PT 10.9 (9.7-12.0) SECONDS INR 1.00 Sodium 139 (136-145) mEq/L Potassium 3.9 (3.5-5.1) mEq/L Chloride 96 L (98-107) mEq/L Carbon Dioxide 31 (21-32) mEq/L Anion Gap 15.9 H (5-15) BUN 24 H (7-18) mg/dL Creatinine 1.6 H (0.55-1.02) mg/dL Est Cr Clr Drug Dosing 20.88 mL/min Estimated GFR (MDRD) 31 (>60) mL/min BUN/Creatinine Ratio 15.0 (14-18) Glucose 170 H (83-115) mg/dL Calcium 10.4 H (8.5-10.1) mg/dL Total Bilirubin 0.7 (0.2-1.0) mg/dL AST 19 (15-37) U/L ALT 21 (14-59) U/L Alkaline Phosphatase 75 (46-116) U/L Troponin I < 0.017 (0.00-0.056) ng/mL NT-Pro-B Natriuret Pep (0-450) pg/mL Total Protein 7.9 (6.4-8.2) g/dl Albumin 4.1 (3.4-5.0) g/dl Globulin 3.8 gm/dL Albumin/Globulin Ratio 1.1 (1-2) Lipase (73-393) U/L 05/28/19 05/28/19 Range/Units 12:40 12:40 WBC (3.98-10.04) K/mm3 RBC (3.98-5.22) M/mm3 Hgb (11.2-15.7) gm/dl Hct (34.1-44.9) % MCV (79.4-94.8) fl MCH (25.6-32.2) pg MCHC (32.2-35.5) g/dl RDW Std Deviation (36.4-46.3) fL Plt Count (182-369) K/mm3 MPV (9.4-12.3) fl Neut % (Auto) (34.0-71.1) % Lymph % (Auto) (19.3-51.7) % [place] % (Auto) (4.7-12.5) % Eos % (Auto) (0.7-5.8) Baso % (Auto) (0.1-1.2) % Neut # (Auto) (1.56-6.13) K/mm3 Lymph # (Auto) (1.18-3.74) K/mm3 [place] # (Auto) (0.24-0.36) K/mm3 Eos # (Auto) (0.04-0.36) K/mm3 Baso # (Auto) (0.01-0.08) K/mm3 Manual Slide Review PT (9.7-12.0) SECONDS INR Sodium (136-145) mEq/L Potassium (3.5-5.1) mEq/L Chloride (98-107) mEq/L Carbon Dioxide (21-32) mEq/L Anion Gap (5-15) BUN (7-18) mg/dL Creatinine (0.55-1.02) mg/dL Est Cr Clr Drug Dosing mL/min Estimated GFR (MDRD) (>60) mL/min BUN/Creatinine Ratio (14-18) Glucose (83-115) mg/dL Calcium (8.5-10.1) mg/dL Total Bilirubin (0.2-1.0) mg/dL AST (15-37) U/L ALT (14-59) U/L Alkaline Phosphatase (46-116) U/L Troponin I (0.00-0.056) ng/mL NT-Pro-B Natriuret Pep 765 H (0-450) pg/mL Total Protein (6.4-8.2) g/dl Albumin (3.4-5.0) g/dl Globulin gm/dL Albumin/Globulin Ratio (1-2) Lipase 136 (73-393) U/L Result Diagrams: 05/28/19 12:40 05/28/19 12:40 Imaging Impressions Last 24 hrs: Abdominal x-ray findings show normal bowel gas pattern. EKG INTERPRETATION EKG Date: 05/28/19 Time: 19:10 Rhythm: NSR Rate (Beats/Min): 102 [place]: Normal P-Wave: Present QRS: Other (RSR prime) Sepsis Event Note - Evaluation Sepsis Screening Result: No Definite Risk - Focused Exam Vital Signs: Vital Signs Temp Pulse Resp BP Pulse Ox 05/28/19 12:36 97.5 F 191 H 22 H 153/108 H 90 L Date Exam was Performed: 05/28/19 Time Exam was Performed: 21:49 Problem List Initiated/Reviewed/Updated: Yes Orders Last 24hrs: Active Orders 24 hr Category Date Time Status Admission Status [Patient Status] [ADT] Routine ADT 05/28/19 19:51 Active Antiembolic Devices [RC] PER UNIT ROUTINE Care 05/28/19 20:35 Ordered EKG 12 Lead [EKG Documentation Completion] [RC] STAT Care 05/28/19 12:42 Active Oxygen Therapy [RC] PRN Care 05/28/19 20:32 Ordered Peripheral IV Care [RC] . DIRECTED Care 05/28/19 12:43 Active Up With Assistance [RC] ASDIRECTED Care 05/28/19 20:32 Ordered VTE/DVT Education [RC] PER UNIT ROUTINE Care 05/28/19 20:32 Ordered Vital Signs [RC] Q4H Care 05/28/19 20:32 Ordered Clear Liquid Diet [DIET] Diet 05/29/19 Breakfast Ordered CBC WITH AUTO DIFF [HEME] AM Lab 05/29/19 05:11 Ordered COMPREHENSIVE METABOLIC PN,CMP [CHEM] AM Lab 05/29/19 05:11 Ordered MAGNESIUM [CHEM] AM Lab 05/29/19 05:11 Ordered Acetaminophen [Tylenol] Med 05/28/19 20:32 Ordered 650 mg RECTAL Q4H PRN Diltiazem 125 mg Med 05/28/19 19:15 Active Sodium Chloride 0.9% [Normal Saline] 100 ml IV TITRATE Promethazine [Phenergan] 12.5 mg Med 05/28/19 20:32 Ordered Sodium Chloride 0.9% [Normal Saline] 50 ml IV Q6H Scopolamine [Transderm-Scop] Med 05/28/19 19:55 Active 1.5 mg TRDERM Q72H PRN Sodium Chloride 0.9% [Normal Saline] 1,000 ml Med 05/28/19 20:45 Ordered IV ASDIRECTED Sodium Chloride 0.9% [Normal Saline] 500 ml Med 05/28/19 19:53 Active IV .BOLUS Sodium Chloride 0.9% [Normal Saline] 500 ml Med 05/28/19 13:15 Active IV ASDIRECTED Sodium Chloride 0.9% [Saline Flush] Med 05/28/19 12:42 Active 10 ml FLUSH ASDIRECTED PRN Peripheral IV Insertion Adult [OM.PC] Stat Oth 05/28/19 12:42 Ordered Sequential Compression Device [OM.PC] Per Unit Routine Oth 05/28/19 20:33 Ordered Resuscitation Status Routine Resus Stat 05/28/19 20:32 Ordered Medication Orders Acetaminophen (Tylenol) 650 mg RECTAL Q4H PRN PRN Reason: Pain (mild 1-3) Sodium Chloride (Normal Saline) 500 mls @ 999 mls/hr IV ASDIRECTED AREN Last Admin: 05/28/19 13:16 Dose: 999 mls/hr Diltiazem HCl 125 mg/ Sodium (Chloride) 125 mls @ 5 mls/hr IV TITRATE AREN; Protocol Last Admin: 05/28/19 19:34 Dose: 5 mg/hr, 5 mls/hr Sodium Chloride (Normal Saline) 500 mls @ 500 mls/hr IV .BOLUS ONE Stop: 05/28/19 20:52 Last Admin: 05/28/19 20:04 Dose: 500 mls/hr Promethazine HCl 12.5 mg/ (Sodium Chloride) 50.5 mls @ 100 mls/hr IV Q6H PRN PRN Reason: Nausea/Vomiting Sodium Chloride (Normal Saline) 1,000 mls @ 100 mls/hr IV ASDIRECTED AREN Scopolamine (Transderm-Scop) 1.5 mg TRDERM Q72H PRN PRN Reason: Nausea/Vomiting Last Admin: 05/28/19 20:08 Dose: 1.5 mg Sodium Chloride (Saline Flush) 10 ml FLUSH ASDIRECTED PRN PRN Reason: Keep Vein Open Last Admin: 05/28/19 12:57 Dose: 10 ml Assessment/Plan Comment:: Assessment * Nausea and vomiting * Ventral hernia repair x2 on May 26, 2 days prior to admission * Patient given 2 doses of Zofran and a dose of Reglan in the emergency room * Abdominal x-ray shows nothing acute * Mild leukocytosis * Continuing to have some flatus, but no bowel movement * Sinus tachycardia * Patient presented to the emergency room in atrial fibrillation with RVR * Current sinus tachycardia likely secondary to not being on her home diltiazem and hypovolemia secondary to vomiting * Was started on a Cardizem drip in the emergency room * Acute kidney injury * Previous kidney function unknown * Current creatinine 1.6, BUN 24, estimated GFR 31 * Likely secondary to hypovolemia * Hypertension * Hypothyroidism Plan * Admit to ICU * Cautiously rehydrate starting with 1 L NS fluid bolus then at 100 mL/h * Follow urinary output closely. * Continue Cardizem drip until fluid resuscitation. * Scopolamine patch to help with nausea * Phenergan 12.5 mg IV every 6 hours as needed nausea and vomiting * Advanced diet as tolerated and restart home meds as soon as possible * Check CBC, CMP, magnesium in the morning * If continued nausea and vomiting in the morning may consider surgical consult * VTE prophylaxis with SCDs * CODE STATUS full code * Length of stay 2 to 3 days. - Mortality Measure Prognosis:: Good
[2019-05-29] MEDS: Promethazine 12.5 MG in Sodium Chloride 0.9% 50 ML IV PRN ×2 (00:12→07:57)
[2019-05-29] MEDS: Sodium Chloride 0.9% 1,000 ML IV SCH ×2 (02:45→10:15)
[2019-05-29] MEDS ORDERED: Acetaminophen 325 MG Tab PO PRN (07:54)
[2019-05-29] MEDS ORDERED: Levothyroxine 100 MCG Tab PO SCH (08:00)
[2019-05-29] MEDS ORDERED: Diltiazem 180 MG Cap.CD PO SCH (09:00)
[2019-05-29] MEDS ORDERED: Ondansetron 4 MG/2 ML SDV IVPUSH PRN (09:02)
[2019-05-29] MEDS: Potassium Chloride 10 MEQ in Premix Bag 1 BAG IV SCH ×4 (09:12→14:22)
[2019-05-29] MEDS ORDERED: Sodium Chloride 0.9% 1,000 ML IV SCH ×2 (11:30→15:30)
--- NOTE | 2019-05-29 11:48 | CT ---
CT abdomen and pelvis Technique: Multiple axial sections were obtained from above the dome of the diaphragm inferiorly through the pubic symphysis. Intravenous and oral contrast was not utilized. Previous CT abdomen and pelvis exam of 03/25/15. Findings: Dilated fluid-filled esophagus is seen. Severely dilated fluid-filled stomach is noted. Diffuse dilated fluid-filled small bowel loops are seen. There is an right anterior abdominal wall hernia being seen within the pelvis containing a loop of small bowel which appears to be causing the small bowel obstruction. Air is noted within the anterior abdominal wall compatible with recent surgery. Slight atelectasis is seen within both lung bases. Noncontrast appearance of the liver and spleen shows no discrete abnormality. Adrenal glands show no nodule. Pancreas is within normal limits. Kidneys show no abnormal calcifications or hydronephrosis. Aorta shows no aneurysm with atherosclerotic calcification being noted. No retroperitoneal adenopathy or mesenteric abnormalities are seen. No pelvic mass or adenopathy is noted. Cat catheter is noted within the bladder. Numerous sigmoid diverticuli are seen as well as lesser diverticuli within the descending colon. No inflammatory change of diverticulitis is seen. Bone window settings were reviewed which shows scattered degenerative change throughout the spine. Impression: 1. Fluid within dilated esophagus, fluid within dilated stomach as well as small bowel dilatation containing fluid. These findings of small bowel obstruction are felt to be caused by an abdominal wall hernia to the right side within the pelvis. Surgical referral is recommended. 2. Air within the abdominal wall compatible with recent surgery. 3. Other findings which are felt to be incidental as noted above. Diagnostic code #5 This report was dictated in [place] Standard Time
--- NOTE | 2019-05-29 13:19 | CR ---
Chest: Portable view of the chest was obtained. Comparison: Prior chest x-ray of 05/28/19. Mild atelectasis on both sides. Atelectasis is along the minor fissure on the right side. Lungs otherwise are clear. Heart is mildly enlarged. Tortuous thoracic aorta is seen. Bony structures are grossly intact. Nasogastric tube is seen. Tip lies within the stomach. Impression: 1. Tip of nasogastric tube within the stomach. 2. Mild areas of atelectasis. Mild cardiomegaly. Diagnostic code #2 Study was dictated in [place] Standard Time
[2019-05-29 13:25] VITALS: PULSE 88
--- NOTE | 2019-05-29 15:30 | PCM.DCSUM1 ---
Discharge Summary - Hospital Course HPI Initial Comments: 84-year-old female post to ventral abdominal wall surgeries ventral hernia repair x2 2 days ago presented to the emergency room with 1 day of nausea and vomiting. Patient states that she did well on Saturday, the day of surgery, and that evening. Saturday, yesterday she developed nausea and vomiting. She states she could not keep anything down. She denies any fever or chills. She states that her abdominal pain is mild and more like a soreness. When she presented to the emergency room she was found to be in atrial fibrillation. Patient has a history of postsurgical atrial fibrillation after procedure 3 years ago. Patient was found here to be in A. fib with RVR with a ventricular rate of 188 bpm. Patient was given multiple doses of IV diltiazem with ultimate conversion back to sinus rhythm but continue rate between 106 and 115. Patient was then placed on a Cardizem drip. She was given 1 500 mL bolus and the rest of the bag was run while in the emergency room. Patient was unable to even keep down Jell-O and it was decided to admit her. Patient is on nocturnal O2 and did take 2 ibuprofen yesterday. Patient states that she is passing gas occasionally. She quit smoking in 2011. She smoked 1/2 pack/day for approximately 50 years. She has been diagnosed with COPD. She drinks a couple of beers a night and her last drink was Saturday, 4 days ago. Emergency room labs: WBC 14.45, hemoglobin 14.4, platelets 396, sodium 139, potassium 3.9, chloride 96, bicarb 31, anion gap 16, BUN 24, creatinine 1.6, troponin less than 0.017, lipase 136, proBNP 765. Abdominal x-ray findings show normal bowel gas pattern. Diagnosis: Stroke: No - Discharge Data Discharge Date: 05/29/19 Discharge Disposition: DC/Tfer to Acute Hospital 02 Condition: Good - Referral to Home Health Primary Care Physician: Delphine Perera MD - Patient Summary/Data Consults: Consultations 05/29/19 10:52 OT Evaluation and Treatment [CONS] Routine PT Evaluation and Treatment [CONS] Routine 05/29/19 13:15 Consult to Physician [CONS] Routine Hospital Course: Was admitted to the ICU. She had fluid resuscitation overnight with improved urine output and normalization of renal function. Unfortunately, she continued to have bouts of nausea and vomiting and by noon required an NG tube. Patient did receive her morning medications, but it is unlikely that they were absorbed metabolized. CT scan of the abdomen was performed that did show small bowel obstruction felt to be caused by an abdominal wall hernia to the right side within the pelvis. Surgical referral recommended. I spoke with Dr. Joe from [facility] who did her initial abdominal surgery who felt she needed surgical correction of the incarcerated hernia. Patient and her family felt that they wanted to travel back to [facility] in [place] to have the procedure done there. Patient continued in sinus rhythm throughout stay in the ICU. - Patient Instructions Diet: NPO Other/Special Instructions: Transfer to [facility] in [place] accepting physician Dr. Thrasher. - Discharge Plan *PRESCRIPTION DRUG MONITORING PROGRAM REVIEWED*: No *COPY OF PRESCRIPTION DRUG MONITORING REPORT IN PATIENT ROSETTA: No Home Medications: Home Meds Aspirin [Lo-Dose Aspirin EC] 81 mg PO DAILY 08/09/18 [History] Levothyroxine [Synthroid] 88 mcg PO Q48H 08/09/18 [History] dilTIAZem HCl [Diltiazem ER] 180 mg PO DAILY 08/09/18 [History] Acetaminophen [Tylenol Arthritis] 1 tab PO Q8H PRN 05/28/19 [History] Acetaminophen [Tylenol] 500 mg PO Q6H PRN 05/28/19 [History] Calcium Carb, Citrate/Vit D3 [Calcium + D3 ER Tablet] 2 tab PO BEDTIME 05/28/19 [History] Ibuprofen [Motrin] 200 mg PO Q6H PRN 05/28/19 [History] Multivitamins [Tab-A-Santiago] 1 tab PO DAILY 05/28/19 [History] Rosuvastatin Calcium [Crestor] 20 mg PO BEDTIME 05/28/19 [History] Levothyroxine [Synthroid] 100 mcg PO Q48H 05/29/19 [History] Oxygen Therapy Mode: Nasal Cannula Forms: ED Department Discharge Referrals: Delphine Perera MD [Primary Care Provider] - - Discharge Summary/Plan Comment DC Time >30 min.: Yes Discharge Summary/Plan Comment: Transferred to [facility] in [place]. Accepting physician Dr. Thrasher. - General Info Date of Service: 05/29/19 Admission Dx/Problem (Free Text: Admission Diagnosis/Problem Admission Diagnosis/Problem Atrial flutter with rapid ventricular response Subjective Update: Patient continues to have abdominal discomfort, bloating. - Review of Systems General: Reports: No Symptoms HEENT: Reports: No Symptoms Pulmonary: Reports: No Symptoms Cardiovascular: Reports: No Symptoms Gastrointestinal: Reports: Abdominal Pain Skin: Reports: No Symptoms Neurological: Reports: No Symptoms - Patient Data Vitals - Most Recent: Last Vital Signs Temp 98.2 F 05/29/19 13:52 Pulse 88 05/29/19 13:00 Resp 20 05/29/19 13:52 BP 128/68 05/29/19 13:52 Pulse Ox 96 05/29/19 13:52 Weight - Most Recent: 170 lb I&O - Last 24 hours: Intake & Output 05/29/19 05/29/19 05/29/19 06:59 14:59 22:59 Intake Total 2639 Output Total 725 3300 Balance 1914 -3300 Lab Results - Last 24 hrs: Laboratory Results - last 24 hr 05/28/19 05/29/19 05/29/19 Range/Units 12:40 04:58 04:58 WBC 10.47 H (3.98-10.04) K/mm3 RBC 4.15 (3.98-5.22) M/mm3 Hgb 12.3 D (11.2-15.7) gm/dl Hct 39.2 (34.1-44.9) % MCV 94.5 (79.4-94.8) fl MCH 29.6 (25.6-32.2) pg MCHC 31.4 L (32.2-35.5) g/dl RDW Std Deviation 50.2 H (36.4-46.3) fL Plt Count 291 D (182-369) K/mm3 MPV 10.2 (9.4-12.3) fl Neut % (Auto) 75.5 H (34.0-71.1) % Lymph % (Auto) 9.1 L (19.3-51.7) % [place] % (Auto) 14.9 H (4.7-12.5) % Eos % (Auto) 0.2 L (0.7-5.8) Baso % (Auto) 0.1 (0.1-1.2) % Neut # (Auto) 7.91 H (1.56-6.13) K/mm3 Lymph # (Auto) 0.95 L (1.18-3.74) K/mm3 [place] # (Auto) 1.56 H (0.24-0.36) K/mm3 Eos # (Auto) 0.02 L (0.04-0.36) K/mm3 Baso # (Auto) 0.01 (0.01-0.08) K/mm3 Manual Slide Review Abnormal smear Sodium 143 (136-145) mEq/L Potassium 3.3 L (3.5-5.1) mEq/L Chloride 103 (98-107) mEq/L Carbon Dioxide 32 (21-32) mEq/L Anion Gap 11.3 (5-15) BUN 18 (7-18) mg/dL Creatinine 0.9 (0.55-1.02) mg/dL Est Cr Clr Drug Dosing 37.12 mL/min Estimated GFR (MDRD) 59 (>60) mL/min BUN/Creatinine Ratio 20.0 H (14-18) Glucose 144 H (83-115) mg/dL Calcium 8.7 D (8.5-10.1) mg/dL Magnesium 2.0 1.9 (1.8-2.4) mg/dl Total Bilirubin 0.5 (0.2-1.0) mg/dL AST 16 (15-37) U/L ALT 17 (14-59) U/L Alkaline Phosphatase 59 (46-116) U/L Total Protein 6.5 (6.4-8.2) g/dl Albumin 3.2 L (3.4-5.0) g/dl Globulin 3.3 gm/dL Albumin/Globulin Ratio 1.0 (1-2) Med Orders - Current: Current Medications Acetaminophen (Tylenol) 650 mg RECTAL Q4H PRN PRN Reason: Pain (mild 1-3) Acetaminophen (Tylenol) 650 mg PO Q6H PRN PRN Reason: Pain (mild 1-3) Diltiazem HCl (Cardizem Cd) 180 mg PO DAILY AREN Last Admin: 05/29/19 08:51 Dose: 180 mg Diltiazem HCl 125 mg/ Sodium (Chloride) 125 mls @ 5 mls/hr IV TITRATE AREN; Protocol Last Titration: 05/28/19 23:41 Dose: 0 mg/hr, 0 mls/hr Promethazine HCl 12.5 mg/ (Sodium Chloride) 50.5 mls @ 100 mls/hr IV Q6H PRN PRN Reason: Nausea/Vomiting Last Admin: 05/29/19 07:57 Dose: 100 mls/hr Sodium Chloride (Normal Saline) 1,000 mls @ 125 mls/hr IV ASDIRECTED AREN Levothyroxine Sodium (Synthroid) 88 mcg PO Q48H AREN Levothyroxine Sodium (Synthroid) 100 mcg PO Q48H AREN Last Admin: 05/29/19 08:51 Dose: 100 mcg Miscellaneous Information (Remove Patch) 1 ea TRDERM Q72H AREN Ondansetron HCl (Zofran) 4 mg IVPUSH Q4H PRN PRN Reason: Nausea Last Admin: 05/29/19 10:20 Dose: 4 mg Rosuvastatin Calcium (Crestor) 20 mg PO BEDTIME AREN Scopolamine (Transderm-Scop) 1.5 mg TRDERM Q72H PRN PRN Reason: Nausea/Vomiting Last Admin: 05/28/19 20:08 Dose: 1.5 mg Sodium Chloride (Saline Flush) 10 ml FLUSH ASDIRECTED PRN PRN Reason: Keep Vein Open Last Admin: 05/28/19 12:57 Dose: 10 ml Discontinued Medications Diltiazem HCl (Cardizem) 20 mg IVPUSH ONETIME ONE Stop: 05/28/19 12:52 Last Admin: 05/28/19 12:56 Dose: 5 mg Diltiazem HCl (Cardizem) 5 mg IVPUSH ONETIME ONE Stop: 05/28/19 14:06 Last Admin: 05/28/19 14:13 Dose: 5 mg Diltiazem HCl (Cardizem) 5 mg IVPUSH ONETIME ONE Stop: 05/28/19 14:49 Last Admin: 05/28/19 14:48 Dose: 5 mg Diltiazem HCl (Cardizem) 5 mg IVPUSH ONETIME ONE Stop: 05/28/19 15:36 Last Admin: 05/28/19 15:40 Dose: 5 mg Diltiazem HCl (Cardizem Cd) 180 mg PO ONETIME ONE Stop: 05/28/19 17:20 Last Admin: 05/28/19 18:26 Dose: Not Given Diltiazem HCl (Cardizem) 10 mg IVPUSH ONETIME ONE Stop: 05/28/19 18:21 Last Admin: 05/28/19 18:26 Dose: 10 mg Sodium Chloride (Normal Saline) 500 mls @ 999 mls/hr IV ASDIRECTED [facility] Last Admin: 05/28/19 21:34 Dose: 999 mls/hr Sodium Chloride (Normal Saline) 500 mls @ 500 mls/hr IV .BOLUS ONE Stop: 05/28/19 20:52 Last Infusion: 05/28/19 21:05 Dose: Infused Sodium Chloride (Normal Saline) 1,000 mls @ 100 mls/hr IV ASDIRECTED [facility] Last Infusion: 05/28/19 23:49 Dose: 125 mls/hr Sodium Chloride (Normal Saline) 1,000 mls @ 125 mls/hr IV ASDIRECTED [facility] Last Infusion: 05/29/19 15:23 Dose: 125 mls/hr Potassium Chloride 10 meq/ (Premix) 100 mls @ 100 mls/hr IV Q1H [facility] Stop: 05/29/19 13:29 Last Infusion: 05/29/19 14:25 Dose: 100 mls/hr Sodium Chloride (Normal Saline) 1,000 mls @ 75 mls/hr IV ASDIRECTED [facility] Metoclopramide HCl (Reglan) 2.5 mg IVPUSH ONETIME ONE Stop: 05/28/19 15:36 Last Admin: 05/28/19 15:45 Dose: 2.5 mg Ondansetron HCl (Zofran) 4 mg IVPUSH ONETIME ONE Stop: 05/28/19 13:21 Last Admin: 05/28/19 13:25 Dose: 4 mg Ondansetron HCl (Zofran) 4 mg IVPUSH ONETIME ONE Stop: 05/28/19 17:40 Last Admin: 05/28/19 17:43 Dose: 4 mg - Exam Quality Assessment: Reports: Supplemental Oxygen General: Reports: Alert, Oriented HEENT: Reports: Pupils Equal, Mucous Membr. Moist/[place] Neck: Reports: Supple Lungs: Reports: Clear to Auscultation, Normal Respiratory Effort Cardiovascular: Reports: Regular Rate, Regular Rhythm GI/Abdominal Exam: Distended, Tender (Diffusely tender worse in the right lower quadrant), Abnormal Bowel Sounds (Greatly diminished bowel sounds). No: Rigid, Rebound Back Exam: Reports: Normal Inspection Skin: Reports: Warm, Dry, Intact Wound/Incisions: Reports: Healing Well Psy/Mental Status: Reports: Alert, Normal Affect, Normal Mood
[2019-05-29 17:02] VITALS: BP 120/73
[2019-05-29] MEDS ORDERED: Rosuvastatin 10 MG Tab PO SCH (21:00)
[2019-05-30] MEDS ORDERED: Levothyroxine 88 MCG Tab PO SCH (08:00)
== END 2019-05-29 16:07 | DRG 309 ==
LOC: JD.ED 12:18 → JD.ICU 19:51
PROVIDERS: ADMIT Family Medicine; ATTEND Family Medicine
DX: I48.91 Unspecified atrial fibrillation (principal); N17.9 Acute kidney failure, unspecified; K46.0 Unspecified abdominal hernia with obstruction, without gangrene; I48.92 Unspecified atrial flutter; K56.7 Ileus, unspecified; E86.1 Hypovolemia; R00.0 Tachycardia, unspecified; E78.00 Pure hypercholesterolemia, unspecified; I10 Essential (primary) hypertension; G47.30 Sleep apnea, unspecified; K21.9 Gastro-esophageal reflux disease without esophagitis; Z88.8 Allergy status to other drugs, medicaments and biological substances; E03.9 Hypothyroidism, unspecified; Z90.710 Acquired absence of both cervix and uterus; Z98.890 Other specified postprocedural states; Z87.891 Personal history of nicotine dependence; Z79.82 Long term (current) use of aspirin; Z79.890 Hormone replacement therapy; Z79.899 Other long term (current) drug therapy; Z88.0 Allergy status to penicillin; Z88.4 Allergy status to anesthetic agent; Z91.041 Radiographic dye allergy status; Z91.012 Allergy to eggs
CPT/HCPCS: 71045; 74019; 96374; 96375; 96376; 99285; 93005 ×2; 85025; 85610; 36415; 80053; 83735; 84484; 83880; 83690; J3490 ×6; J2765; J7030; J7050; J2405 ×2; 51702; 74176; 74176-26; 93010; 99223; 99239; 99284; A9270-GY; J2550; J3480

== ENCOUNTER 2020-08-17 08:11 | Emergency (ER) | payer MEDICARE, BC ==
[2020-08-17 09:13] LABS: CORONAVIRUS COVID-19 NAA NEGATIVE (NEGATIVE)
--- NOTE | 2020-08-17 09:20 | CR ---
Chest: Portable view of the chest was obtained. Comparison: Prior chest x-rays of 05/29/19. Nodular density is seen within the right lung base measuring about 3.4 cm. Lungs otherwise are clear. Heart is mildly enlarged. Tortuous thoracic aorta is seen. Bony structures are grossly intact. Impression: 1. 3.4 cm nodular density within the right lung base. This is not seen on prior study. Chest CT recommended to further evaluate as neoplasm is not excluded. 2. Slight cardiomegaly with nothing acute otherwise being seen. Diagnostic code #9
--- NOTE | 2020-08-17 10:12 | CT ---
CT chest Technique: Multiple axial sections through the chest were obtained. Intravenous contrast was not utilized. Reconstructed coronal and sagittal images were obtained. Comparison: Prior chest x-ray performed earlier on the same day (8:27 AM). Findings: Mass is identified within the right middle lobe which is slightly lobulated. This abuts the pleura. This nodule measures 3.2 x 3.0 cm. Nodule is suspicious for malignancy. Small scar is noted within this area. Lungs otherwise show nothing acute. Thoracic aorta shows atherosclerotic calcification without aneurysm. Small lymph nodes are seen within the mediastinum which appear within normal limits in size at this time. Coronary artery calcification is seen which is mild. No pericardial thickening is appreciated. Small portion of the visualized upper abdominal structures show a moderate sized hiatal hernia. Bone window settings were reviewed which show mild scattered degenerative change within the spine. No osteoblastic or focal osteolytic change is seen. Impression: 1. 3.2 x 3.0 cm nodule within the right middle lobe abutting the pleura. Neoplasm is suspected and biopsy should be considered. 2. Other findings as noted above which are nonacute. Diagnostic code #9
[2020-08-17] MEDS ORDERED: methylPREDNISolone Sodium Succinate 125 MG/2 ML SDV IVPUSH ONE (10:28)
--- NOTE | 2020-08-17 10:35 | EDM.PDOC ---
ED HPI GENERAL MEDICAL PROBLEM - General Chief Complaint: General Stated Complaint: [facility] Time Seen by Provider: 08/17/20 09:09 Source of Information: Reports: Patient History Limitations: Reports: No Limitations - History of Present Illness INITIAL COMMENTS - FREE TEXT/NARRATIVE: The patient presents by [facility] for cough, shortness of breath, dizziness and sore throat. This started yesterday. She denies any chest pain. The sore throat is better. She has no abdominal pain, nausea or vomiting. She has a history of COPD and pneumonia. She is not on any inhalers now. She said the dizziness is like being lightheaded. Onset: Gradual Duration: Day(s): Location: Reports: Other (throat) Quality: Reports: Sharp Severity: Moderate Improves with: Reports: None Worsens with: Reports: None Associated Symptoms: Reports: Cough, Shortness of Breath. Denies: Chest Pain, Fever/Chills, Headaches, Nausea/Vomiting - Related Data Allergies Allergy/AdvReac Type Severity Reaction Status Date / Time Iodinated Contrast Media Allergy Swelling Verified 08/17/20 08:21 [Iodinated Contrast- Oral and IV Dye] lidocaine Allergy Swelling Verified 08/17/20 08:21 Penicillins Allergy Hives Verified 08/17/20 08:21 eggs Allergy Hives Uncoded 08/17/20 08:21 Home Meds: Home Meds Aspirin [Lo-Dose Aspirin EC] 81 mg PO DAILY 08/09/18 [History] Levothyroxine [Synthroid] 88 mcg PO Q48H 08/09/18 [History] dilTIAZem HCl [Diltiazem ER] 180 mg PO DAILY 08/09/18 [History] Acetaminophen [Tylenol Arthritis] 1 tab PO Q8H PRN 05/28/19 [History] Acetaminophen [Tylenol] 500 mg PO Q6H PRN 05/28/19 [History] Calcium Carb, Citrate/Vit D3 [Calcium + D3 ER Tablet] 2 tab PO BEDTIME 05/28/19 [History] Ibuprofen [Motrin] 200 mg PO Q6H PRN 05/28/19 [History] Multivitamins [Tab-A-Santiago] 1 tab PO DAILY 05/28/19 [History] Rosuvastatin Calcium [Crestor] 20 mg PO BEDTIME 05/28/19 [History] Levothyroxine [Synthroid] 100 mcg PO Q48H 05/29/19 [History] Azithromycin [Zithromax] 250 mg PO DAILY #6 tab 08/17/20 [Rx] Past Medical History HEENT History: Reports: Macular Degeneration Cardiovascular History: Reports: Afib, High Cholesterol, Hypertension Respiratory History: Reports: Sleep Apnea Other Respiratory History: wears o2 at noc Gastrointestinal History: Reports: GERD 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 Endocrine/Metabolic History: Reports: Hypothyroidism - Infectious Disease History Infectious Disease History: Reports: None - Past Surgical History GI Surgical History: Reports: Cholecystectomy, Hernia, Inguinal Female Surgical History: Reports: Hysterectomy Social & Family History - Tobacco Use Tobacco Use Status *Q: Never Tobacco User - Caffeine Use Caffeine Use: Reports: Coffee - Recreational Drug Use Recreational Drug Use: No - Living Situation & Occupation Living situation: Reports: Occupation: Retired ED ROS GENERAL - Review of Systems Review Of Systems: See Below Constitutional: Reports: No Symptoms HEENT: Reports: No Symptoms Respiratory: Reports: Shortness of Breath, Cough Cardiovascular: Reports: Lightheadedness. Denies: Chest Pain Endocrine: Reports: No Symptoms GI/Abdominal: Reports: No Symptoms : Reports: No Symptoms Musculoskeletal: Reports: No Symptoms ED EXAM, GENERAL - Physical Exam Exam: See Below Exam Limited By: No Limitations General Appearance: Alert, No Apparent Distress Ears: Normal External Exam Nose: Normal Inspection Head: Atraumatic, Normocephalic Neck: Normal Inspection Respiratory/Chest: No Respiratory Distress, Decreased Breath Sounds Cardiovascular: Regular Rate, Rhythm, No Edema, No Murmur GI/Abdominal: Soft, Non-Tender, No Organomegaly, No Mass Back Exam: Normal Inspection Extremities: Normal Inspection #1 Interpretation EKG Date: 08/17/20 Time: 08:32 Rhythm: NSR Rate (Beats/Min): 87 [place]: Normal P-Wave: Present QRS: Normal ST-T: Normal QT: Normal Course - Vital Signs Last Recorded V/S: Last Vital Signs Temp 97.6 F 08/17/20 08:17 Pulse 90 08/17/20 08:17 Resp 18 08/17/20 08:17 BP 144/91 H 08/17/20 08:17 Pulse Ox 96 08/17/20 08:17 - Orders/Labs/Meds Orders: Active Orders 24 hr Category Date Time Status EKG 12 Lead [EKG Documentation Completion] [RC] STAT Care 08/17/20 08:28 Active RT Post Treatment Assessment [RC] Click to Edit Care 08/17/20 10:58 Ordered RT Pre-Treatment Assessment [RC] Click to Edit Care 08/17/20 10:58 Ordered Albuterol [Proventil HFA] Med 08/17/20 10:57 Once See Dose Instructions INH ONETIME ONE Labs: Laboratory Tests 08/17/20 08/17/20 08/17/20 Range/Units 08:15 08:21 08:21 WBC 12.79 H (3.98-10.04) K/mm3 RBC 4.43 (3.98-5.22) M/mm3 Hgb 13.4 (11.2-15.7) gm/dl Hct 41.8 (34.1-44.9) % MCV 94.4 (79.4-94.8) fl MCH 30.2 (25.6-32.2) pg MCHC 32.1 L (32.2-35.5) g/dl RDW Std Deviation 46.8 H (36.4-46.3) fL Plt Count 297 (182-369) K/mm3 MPV 10.0 (9.4-12.3) fl Neut % (Auto) 78.4 H (34.0-71.1) % Lymph % (Auto) 8.1 L (19.3-51.7) % [place] % (Auto) 11.1 (4.7-12.5) % Eos % (Auto) 1.8 (0.7-5.8) Baso % (Auto) 0.4 (0.1-1.2) % Neut # (Auto) 10.03 H (1.56-6.13) K/mm3 Lymph # (Auto) 1.04 L (1.18-3.74) K/mm3 [place] # (Auto) 1.42 H (0.24-0.36) K/mm3 Eos # (Auto) 0.23 (0.04-0.36) K/mm3 Baso # (Auto) 0.05 (0.01-0.08) K/mm3 Manual Slide Review Abnormal smear Sodium 142 (136-145) mEq/L Potassium 4.0 (3.5-5.1) mEq/L Chloride 103 (98-107) mEq/L Carbon Dioxide 31 (21-32) mEq/L Anion Gap 12.0 (5-15) BUN 7 (7-18) mg/dL Creatinine 0.8 (0.55-1.02) mg/dL Est Cr Clr Drug Dosing 40.98 mL/min Estimated GFR (MDRD) > 60 (>60) mL/min BUN/Creatinine Ratio 8.8 L (14-18) Glucose 99 (83-115) mg/dL Calcium 9.4 (8.5-10.1) mg/dL Total Bilirubin 0.5 (0.2-1.0) mg/dL AST 18 (15-37) U/L ALT 22 (14-59) U/L Alkaline Phosphatase 81 (46-116) U/L Total Protein 7.1 (6.4-8.2) g/dl Albumin 3.6 (3.4-5.0) g/dl Globulin 3.5 gm/dL Albumin/Globulin Ratio 1.0 (1-2) Influenza Type A RNA Negative (NEGATIVE) Influenza Type B RNA Negative (NEGATIVE) SARS-CoV-2 RNA (VANESA) Negative (NEGATIVE) Meds: Medications Discontinued Medications Generic Name Dose Route Start Last Admin Trade Name Freq PRN Reason Stop Dose Admin Methylprednisolone Sodium Succinate 125 mg 08/17/20 10:28 08/17/20 10:43 Methylprednisolone Sodium Succinate 125 Mg/2 Ml Sdv IVPUSH 08/17/20 10:29 125 mg ONETIME ONE Administration - Re-Assessments/Exams Free Text/Narrative Re-Assessment/Exam: 08/17/20 10:37 I ordered an IV saline lock, EKG, CXR, labs and COVID 19. Her EKG shows a NSR with no acute changes. Her CXR shows a mass in the right chest. I have ordered a CT of her chest. Her WBC was slightly elevated at 12.79. Her CMP looks good. Her influenza and COVID [address] of her chest shows a 3.2 X 3 cm nodule within the right middle lobe abutting the pleura. Neoplasm is suspected and biopsy should be considered. Other findings as noted above which are nonacute. I do not think the mass is causing her problems but she will need to follow up with Dr Perera and have a referral to have this biopsied. I feel she has some bronchitis with COPD exacerbation. I will give her a dose of solu-medrol 125mg IV here and some food and I will have my nurse get her up and see how she does. 08/17/20 10:58 She did good. She is a little lightheaded. I will give her some albuterol here. I did call Dr Perera's nurse and let her know what is going on with the patient and the mass in her chest. I faxed down the reports. I will get her on some zithromax and give her some albuterol from here. Departure - Departure Time of Disposition: 11:10 Disposition: Home, Self-Care 01 Condition: Good Clinical Impression: Bronchitis, Lightheaded COPD (chronic obstructive pulmonary disease) Qualifiers: COPD type: unspecified COPD Qualified Code(s): J44.9 - Chronic obstructive pulmonary disease, unspecified - Discharge Information *PRESCRIPTION DRUG MONITORING PROGRAM REVIEWED*: Not Applicable *COPY OF PRESCRIPTION DRUG MONITORING REPORT IN PATIENT [place]ET[place]: Not Applicable Prescriptions: Azithromycin [Zithromax] 250 mg PO DAILY #6 tab Referrals: Delphine Perera MD [Primary Care Provider] - 1 Week Forms: ED Department Discharge Additional Instructions: Take the zithromax as prescribed. Use the albuterol inhaler 2 puffs every 6 hours as needed for shortness of breath. There was a nodule in your lung. Follow up with Dr Perera. They may need to do a biopsy. Please return if you are worse. Sepsis Event Note (ED) - Evaluation Sepsis Screening Result: No Definite Risk - Focused Exam Vital Signs: Vital Signs Temp Pulse Resp BP Pulse Ox 08/17/20 08:17 97.6 F 90 18 144/91 H 96 - My Orders Last 24 Hours: My Active Orders 08/17/20 08:28 EKG 12 Lead [EKG Documentation Completion] [RC] STAT 08/17/20 10:57 Albuterol [Proventil HFA] See Dose Instructions INH ONETIME ONE 08/17/20 10:58 RT Post Treatment Assessment [RC] Click to Edit RT Pre-Treatment Assessment [RC] Click to Edit - Assessment/Plan Last 24 Hours: My Active Orders 08/17/20 08:28 EKG 12 Lead [EKG Documentation Completion] [RC] STAT 08/17/20 10:57 Albuterol [Proventil HFA] See Dose Instructions INH ONETIME ONE 08/17/20 10:58 RT Post Treatment Assessment [RC] Click to Edit RT Pre-Treatment Assessment [RC] Click to Edit
[2020-08-17] MEDS ORDERED: Albuterol 6.7 GM Inhaler INH ONE (10:57)
[2020-08-17 11:47] VITALS: BP 120/80; PULSE 105
== END 2020-08-17 11:35 | disposition home or self-care (01) ==
LOC: JD.ED 08:11
DX: J44.9 Chronic obstructive pulmonary disease, unspecified (principal); R42 Dizziness and giddiness; I48.91 Unspecified atrial fibrillation; Z91.041 Radiographic dye allergy status; Z88.4 Allergy status to anesthetic agent; Z88.0 Allergy status to penicillin; Z91.012 Allergy to eggs; Z79.82 Long term (current) use of aspirin; Z79.899 Other long term (current) drug therapy; Z20.822 Contact with and (suspected) exposure to COVID-19
CPT/HCPCS: 0240U; 36415; 71045; 71250; 80053; 85025; 93005; 94640; 96374; 99285; A9270; J2930; 93010; 99284

== ENCOUNTER 2020-12-04 12:07 | Emergency (ER) | payer MEDICARE, BC ==
[2020-12-04 12:27] VITALS: BP 110/53; PULSE 93
--- NOTE | 2020-12-04 12:34 | EDM.PDOC ---
ED HPI GENERAL MEDICAL PROBLEM - General Chief Complaint: General Stated Complaint: [facility] Time Seen by Provider: 12/04/20 12:24 - History of Present Illness INITIAL COMMENTS - FREE TEXT/NARRATIVE: 85-year-old female brought in by EMS after having some sort of an episode at home. The patient's daughter was picking beings out of the garden the patient was sitting in a chair on the deck. The patient's daughter noticed that the patient was unresponsive and called 911. EMS arrived later on the ground gave her a couple rescue breaths the patient immediately woke up and was oriented. The patient did have several episodes of vomiting after this. Prior to this the patient had a cup of coffee and 2 chocolate chip cookies for breakfast shortly after this she had a donut and another cup of coffee. Patient has a new history of lung cancer she is not sure what type she has had 1 round of chemotherapy for this. Patient has not had any other symptoms is otherwise been feeling okay no fevers or chills or new onset pain anywhere. - Related Data Allergies Allergy/AdvReac Type Severity Reaction Status Date / Time Iodinated Contrast Media Allergy Severe Swelling Verified 12/04/20 12:32 [Iodinated Contrast- Oral and IV Dye] lidocaine Allergy Severe Swelling Verified 12/04/20 12:32 Penicillins Allergy Severe Hives Verified 12/04/20 12:32 eggs Allergy Severe Hives Uncoded 12/04/20 12:32 Home Meds: Home Meds Aspirin [Lo-Dose Aspirin EC] 81 mg PO DAILY 08/09/18 [History] Levothyroxine [Synthroid] 88 mcg PO Q48H 08/09/18 [History] dilTIAZem HCl [Diltiazem ER] 180 mg PO DAILY 08/09/18 [History] Acetaminophen [Tylenol Arthritis] 1 tab PO Q8H PRN 05/28/19 [History] Acetaminophen [Tylenol] 500 mg PO Q6H PRN 05/28/19 [History] Calcium Carb, Citrate/Vit D3 [Calcium + D3 ER Tablet] 2 tab PO BEDTIME 05/28/19 [History] Ibuprofen [Motrin] 200 mg PO Q6H PRN 05/28/19 [History] Multivitamins [Tab-A-Santiago] 1 tab PO DAILY 05/28/19 [History] Rosuvastatin Calcium [Crestor] 20 mg PO BEDTIME 05/28/19 [History] Levothyroxine [Synthroid] 100 mcg PO Q48H 05/29/19 [History] Azithromycin [Zithromax] 250 mg PO DAILY #6 tab 08/17/20 [Rx] Past Medical History HEENT History: Reports: Macular Degeneration Cardiovascular History: Reports: Afib, High Cholesterol, Hypertension Respiratory History: Reports: Sleep Apnea Other Respiratory History: wears o2 at noc Gastrointestinal History: Reports: GERD 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 Denies: Fever, Chills HEENT: Reports: No Symptoms Respiratory: Reports: No Symptoms Cardiovascular: Reports: No Symptoms Endocrine: Reports: No Symptoms GI/Abdominal: Reports: No Symptoms : Reports: No Symptoms Musculoskeletal: Reports: No Symptoms Skin: Reports: No Symptoms Neurological: Reports: No Symptoms ED EXAM, GENERAL - Physical Exam Exam: See Below Exam Limited By: No Limitations General Appearance: Alert, No Apparent Distress, Other (She is completely back to baseline) Nose: Normal Inspection, Normal Mucosa, No Blood Throat/Mouth: Normal Inspection, Normal Lips, Normal Teeth, Normal Gums, Normal Oropharynx, Normal Voice, No Airway Compromise Head: Atraumatic, Normocephalic Neck: Normal Inspection, Supple, Non-Tender, Full Range of Motion Respiratory/Chest: No Respiratory Distress, Lungs Clear, Normal Breath Sounds, Other (Recent port placed) Cardiovascular: Regular Rate, Rhythm, No Edema, No Murmur GI/Abdominal: Normal Bowel Sounds, Soft, Non-Tender Back Exam: Normal Inspection. No: CVA Tenderness (L), CVA Tenderness (R) Extremities: Normal Inspection, No Pedal Edema Neurological: Alert, Oriented, Normal Cognition Psychiatric: Normal Affect, Normal Mood Skin Exam: Warm, Dry Course - Vital Signs Last Recorded V/S: Last Vital Signs Temp 36.0 C L 12/04/20 12:25 Pulse 93 12/04/20 12:25 Resp 20 08/08/21 12:25 BP 110/53 L 12/04/20 12:25 Pulse Ox 93 L 12/04/20 12:25 - Orders/Labs/Meds Orders: Active Orders 24 hr Category Date Time Status EKG Documentation Completion [RC] STAT Care 12/04/20 12:40 Active Holter Monitor 24 Hours [RC] .PRN Care 12/04/20 17:43 Active Labs: Laboratory Tests 12/04/20 12/04/20 12/04/20 Range/Units 13:03 13:03 13:03 WBC 9.41 (3.98-10.04) K/mm3 RBC 3.42 L (3.98-5.22) M/mm3 Hgb 10.2 L D (11.2-15.7) gm/dl Hct 32.0 L (34.1-44.9) % MCV 93.6 (79.4-94.8) fl MCH 29.8 (25.6-32.2) pg MCHC 31.9 L (32.2-35.5) g/dl RDW Std Deviation 46.6 H (36.4-46.3) fL Plt Count 470 H D (182-369) K/mm3 MPV 9.7 (9.4-12.3) fl Neut % (Auto) 82.8 H (34.0-71.1) % Lymph % (Auto) 16.9 L (19.3-51.7) % Saline % (Auto) 0.1 L (4.7-12.5) % Eos % (Auto) 0 L (0.7-5.8) Baso % (Auto) 0.0 L (0.1-1.2) % Neut # (Auto) 7.79 H (1.56-6.13) K/mm3 Lymph # (Auto) 1.59 (1.18-3.74) K/mm3 Saline # (Auto) 0.01 L (0.24-0.36) K/mm3 Eos # (Auto) 0.00 L (0.04-0.36) K/mm3 Baso # (Auto) 0.00 L (0.01-0.08) K/mm3 PT 10.3 (9.7-12.0) SECONDS INR 0.96 APTT 25.4 (21.7-31.4) SECONDS Sodium 140 (136-145) mEq/L Potassium 4.2 (3.5-5.1) mEq/L Chloride 104 (98-107) mEq/L Carbon Dioxide 28 (21-32) mEq/L Anion Gap 12.2 (5-15) BUN 23 H (7-18) mg/dL Creatinine 0.9 (0.55-1.02) mg/dL Est Cr Clr Drug Dosing 36.43 mL/min Estimated GFR (MDRD) 59 (>60) mL/min BUN/Creatinine Ratio 25.6 H (14-18) Glucose 84 (70-99) mg/dL Calcium 8.4 L (8.5-10.1) mg/dL Total Bilirubin 0.1 L (0.2-1.0) mg/dL AST 29 (15-37) U/L ALT 49 (14-59) U/L Alkaline Phosphatase 146 H (46-116) U/L Troponin I < 0.017 (0.00-0.056) ng/mL Total Protein 6.2 L (6.4-8.2) g/dl Albumin 2.9 L (3.4-5.0) g/dl Globulin 3.3 gm/dL Albumin/Globulin Ratio 0.9 L (1-2) Urine Color (Yellow) Urine Appearance (Clear) Urine pH (5.0-8.0) Ur Specific [place] (1.005-1.030) Urine Protein (Negative) Urine Glucose (UA) (Negative) Urine Ketones (Negative) Urine Occult Blood (Negative) Urine Nitrite (Negative) Urine Bilirubin (Negative) Urine Urobilinogen (0.2-1.0) Ur Leukocyte Esterase (Negative) Urine RBC (0-5) /hpf Urine WBC (0-5) /hpf Ur Squamous Epith Cells (0-5) /hpf Urine Bacteria (FEW) /hpf Urine Mucus (FEW) /hpf 12/04/20 Range/Units 14:10 WBC (3.98-10.04) K/mm3 RBC (3.98-5.22) M/mm3 Hgb (11.2-15.7) gm/dl Hct (34.1-44.9) % MCV (79.4-94.8) fl MCH (25.6-32.2) pg MCHC (32.2-35.5) g/dl RDW Std Deviation (36.4-46.3) fL Plt Count (182-369) K/mm3 MPV (9.4-12.3) fl Neut % (Auto) (34.0-71.1) % Lymph % (Auto) (19.3-51.7) % Saline % (Auto) (4.7-12.5) % Eos % (Auto) (0.7-5.8) Baso % (Auto) (0.1-1.2) % Neut # (Auto) (1.56-6.13) K/mm3 Lymph # (Auto) (1.18-3.74) K/mm3 Saline # (Auto) (0.24-0.36) K/mm3 Eos # (Auto) (0.04-0.36) K/mm3 Baso # (Auto) (0.01-0.08) K/mm3 PT (9.7-12.0) SECONDS INR APTT (21.7-31.4) SECONDS Sodium (136-145) mEq/L Potassium (3.5-5.1) mEq/L Chloride (98-107) mEq/L Carbon Dioxide (21-32) mEq/L Anion Gap (5-15) BUN (7-18) mg/dL Creatinine (0.55-1.02) mg/dL Est Cr Clr Drug Dosing mL/min Estimated GFR (MDRD) (>60) mL/min BUN/Creatinine Ratio (14-18) Glucose (70-99) mg/dL Calcium (8.5-10.1) mg/dL Total Bilirubin (0.2-1.0) mg/dL AST (15-37) U/L ALT (14-59) U/L Alkaline Phosphatase (46-116) U/L Troponin I (0.00-0.056) ng/mL Total Protein (6.4-8.2) g/dl Albumin (3.4-5.0) g/dl Globulin gm/dL Albumin/Globulin Ratio (1-2) Urine Color Yellow (Yellow) Urine Appearance Slt cloudy H (Clear) Urine pH 6.0 (5.0-8.0) Ur Specific [place] 1.020 (1.005-1.030) Urine Protein Trace H (Negative) Urine Glucose (UA) Negative (Negative) Urine Ketones Negative (Negative) Urine Occult Blood Negative (Negative) Urine Nitrite Negative (Negative) Urine Bilirubin Negative (Negative) Urine Urobilinogen 0.2 (0.2-1.0) Ur Leukocyte Esterase Negative (Negative) Urine RBC 0-5 (0-5) /hpf Urine WBC 0-5 (0-5) /hpf Ur Squamous Epith Cells 20-30 H (0-5) /hpf Urine Bacteria Few (FEW) /hpf Urine Mucus Few (FEW) /hpf - Re-Assessments/Exams Free Text/Narrative Re-Assessment/Exam: 12/04/20 18:44 Her work-up is unremarkable other than some CBC changes most likely due to her chemotherapy. We have no hospital beds here the patient does not want to go to [place] she really just wants to go home. I believe her episode was possibly related to hypoglycemic episode however cannot exclude a dysrhythmia especially with her history of A. fib we will discharge her home with a Holter monitor and we discussed the importance of not eating high sugar meal. She understands and will follow up as directed I believe her chest x-ray looks better than her prior. Addition of a infusion catheter is seen. Departure - Departure Time of Disposition: 18:48 Disposition: Home, Self-Care 01 Clinical Impression: Hypoglycemic disorder, Syncope - Discharge Information Referrals: Delphine Perera MD [Primary Care Provider] - Forms: ED Department Discharge Additional Instructions: Return to the emergency room with any questions problems or worsening symptoms. Follow-up with your regular physician the middle of this next week. Return the Holter monitor as directed. Make dietary changes as we discussed. Sepsis Event Note (ED) - Focused Exam Vital Signs: Vital Signs Temp Pulse Resp BP Pulse Ox 12/04/20 12:25 36.0 C L 93 20 110/53 L 93 L - My Orders Last 24 Hours: My Active Orders 12/04/20 12:40 EKG Documentation Completion [RC] STAT 12/04/20 17:43 Holter Monitor 24 Hours [RC] .PRN - Assessment/Plan Last 24 Hours: My Active Orders 12/04/20 12:40 EKG Documentation Completion [RC] STAT 12/04/20 17:43 Holter Monitor 24 Hours [RC] .PRN
--- NOTE | 2020-12-04 18:06 | CR ---
Chest: Portable view of the chest was obtained. Comparison: Prior chest CT study of 08/17/20 and chest x-ray also performed on 08/17/20. Right-sided infusion port is seen. Slight density is noted along the right side of the heart which most likely relates to previous treatment of mass that was noted on chest x-ray and chest CT. Right-sided infusion catheter is seen. Lungs otherwise are clear. Heart size and mediastinum are normal. Bony structures show nothing acute. Impression: 1. Slight parenchymal density adjacent to the right heart margin presumably due to change from previous treatment of lung mass noted on prior studies. Chest CT would be needed to confirm if clinically indicated. 2. Right-sided infusion catheter. 3. Nothing acute is otherwise seen. Diagnostic code #3
== END 2020-12-04 19:17 | disposition home or self-care (01) ==
LOC: JD.ED 12:07
DX: E16.2 Hypoglycemia, unspecified (principal); I48.91 Unspecified atrial fibrillation; E78.00 Pure hypercholesterolemia, unspecified; I10 Essential (primary) hypertension; E03.9 Hypothyroidism, unspecified; Z91.041 Radiographic dye allergy status; Z88.4 Allergy status to anesthetic agent; Z88.0 Allergy status to penicillin; Z91.012 Allergy to eggs; Z79.82 Long term (current) use of aspirin; Z79.899 Other long term (current) drug therapy
CPT/HCPCS: 36415; 71045; 71045-26; 80053; 81001; 84484; 85025; 85610; 85730; 93005; 93010; 93225; 93226; 99283; 99285-25

== ENCOUNTER 2020-12-28 16:54 | Emergency (ER) | payer MEDICARE, BC ==
[2020-12-28 18:18] VITALS: BP 122/72; PULSE 102
== END 2020-12-28 21:00 | disposition left against medical advice (07) ==
LOC: JD.ED 16:54
DX: Z53.21 Procedure and treatment not carried out due to patient leaving prior to being seen by health care provider (principal)

== ENCOUNTER 2021-03-27 08:57 | Emergency (ER) | payer MEDICARE, BC ==
[2021-03-27 09:19] VITALS: BP 121/67; PULSE 78
[2021-03-27] MEDS ORDERED: Sodium Chloride 0.9% 10 ML Syringe FLUSH PRN (09:40)
[2021-03-27] MEDS ORDERED: Sodium Chloride 0.45% 1,000 ML IV SCH (09:45)
--- NOTE | 2021-03-27 10:30 | CT ---
Head CT Technique: Multiple axial sections through the brain were obtained. Intravenous contrast was not utilized. Reconstructed coronal and sagittal images were obtained. Comparison: No prior intracranial imaging is available. Findings: Rounded area of increased density is seen within the left side of the brainstem. This finding is most likely due to a small hemorrhagic lesion measuring 7 mm. Possible low density surrounding this lesion is also suggested. Ventricles along with basal cisterns and sulci over the convexities appear mildly prominent. Diffuse low density is seen within the periventricular white matter as well as the left basal ganglia. Findings most likely represent areas of small vessel ischemic demyelination change and small scattered areas of old infarcts. There is no other area of abnormal hemorrhage seen. No midline shift is seen. Bone window settings were reviewed. Visualized mastoid sinuses and paranasal sinuses show nothing acute. No acute calvarial abnormality is appreciated. Impression: 1. Small area of increased density within the left side of the brainstem suspicious for small area of hemorrhage. This measures about 7 mm in size. Possible edema around this finding is suggested. 2. Other senescent change as noted above compatible with atrophy, small vessel ischemic demyelination and probable scattered small old infarcts. Diagnostic code #3
--- NOTE | 2021-03-27 11:41 | EDM.PDOC ---
ED HPI GENERAL MEDICAL PROBLEM - General Chief Complaint: General Stated Complaint: [facility] Time Seen by Provider: 03/27/21 09:11 Source of Information: Reports: Patient, Family (daughter) - History of Present Illness INITIAL COMMENTS - FREE TEXT/NARRATIVE: 85 yr old female has been brought here by [facility] for evaluation of R leg weakness. This started about 2 days ago, became worse yesterday to the point of very difficult to ambulate even with a walker. That difficulty continued this morning. No upper extremity weakness or clumsiness. No facial droop, speech difficulty or visual sx. She has had nonspecific dizziness for about a week, started using a walker about a week ago. No recent chest pain, cough or difficulty breathing. Hx of being vaccinated for covid and than did have a mild case of covid infection this past December about 2 1/2 months ago. - Related Data Allergies Allergy/AdvReac Type Severity Reaction Status Date / Time Iodinated Contrast Media Allergy Severe Swelling Verified 03/27/21 09:19 [Iodinated Contrast- Oral and IV Dye] lidocaine Allergy Severe Swelling Verified 03/27/21 09:19 Penicillins Allergy Severe Hives Verified 03/27/21 09:19 eggs Allergy Severe Hives Uncoded 12/28/20 18:18 Home Meds: Home Meds Aspirin [Lo-Dose Aspirin EC] 81 mg PO DAILY 08/09/18 [History] Levothyroxine [Synthroid] 88 mcg PO Q48H 08/09/18 [History] dilTIAZem HCl [Diltiazem ER] 180 mg PO DAILY 08/09/18 [History] Acetaminophen [Tylenol Arthritis] 1 tab PO Q8H PRN 05/28/19 [History] Acetaminophen [Tylenol] 500 mg PO Q6H PRN 05/28/19 [History] Calcium Carb, Citrate/Vit D3 [Calcium + D3 ER Tablet] 2 tab PO BEDTIME 05/28/19 [History] Ibuprofen [Motrin] 200 mg PO Q6H PRN 05/28/19 [History] Multivitamins [Tab-A-Santiago] 1 tab PO DAILY 05/28/19 [History] Rosuvastatin Calcium [Crestor] 20 mg PO BEDTIME 05/28/19 [History] Levothyroxine [Synthroid] 100 mcg PO Q48H 05/29/19 [History] Azithromycin [Zithromax] 250 mg PO DAILY #6 tab 08/17/20 [Rx] Past Medical History HEENT History: Reports: Macular Degeneration Cardiovascular History: Reports: Afib, High Cholesterol, Hypertension Respiratory History: Reports: Sleep Apnea Other Respiratory History: wears o2 at noc Gastrointestinal History: Reports: GERD 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 Endocrine/Metabolic History: Reports: Hypothyroidism Oncologic (Cancer) History: Reports: Other (See Below) Other Oncologic History: has a cancer spot on her lungs and on her liver;started chemo in October and has had 3 rounds already - Infectious Disease History Infectious Disease History: Reports: Novel Coronavirus - Past Surgical History GI Surgical History: Reports: Cholecystectomy, Hernia, Inguinal Female Surgical History: Reports: Hysterectomy Social & Family History - Tobacco Use Tobacco Use Status *Q: Former Tobacco User Used Tobacco, but Quit: Yes Month/Year Tobacco Last Used: 8 yrs ago - Caffeine Use Caffeine Use: Reports: Coffee - Living Situation & Occupation Living situation: Reports: Occupation: Retired ED ROS GENERAL - Review of Systems Review Of Systems: See Below Constitutional: Denies: Fever, Chills HEENT: Reports: No Symptoms Respiratory: Denies: Shortness of Breath, Cough Cardiovascular: Denies: Chest Pain GI/Abdominal: Denies: Abdominal Pain, Nausea, Vomiting Musculoskeletal: Reports: Leg Pain, Joint Pain (bilat, chronically) Skin: Denies: Rash Neurological: Reports: Headache (mild), Weakness (R lower leg), Gait Disturbance. Denies: Numbness, Trouble Speaking ED EXAM, GENERAL - Physical Exam Exam: See Below General Appearance: Alert, No Apparent Distress Throat/Mouth: Normal Inspection Head: Atraumatic Neck: Supple Respiratory/Chest: No Respiratory Distress, Lungs Clear, Normal Breath Sounds Cardiovascular: Regular Rate, Rhythm GI/Abdominal: Non-Tender Extremities: No: Pedal Edema, Leg Pain Neurological: Alert, Oriented, Other (R lower leg weakness, cannot lift R leg off of cot or keep leg above cot at time of exam. ) Skin Exam: Warm, Dry, Normal Color #1 Interpretation EKG Date: 03/27/21 Rhythm: NSR Rate (Beats/Min): 73 [place]: Normal P-Wave: Present QRS: Other (small q waves lead III) ST-T: Normal Course - Vital Signs Last Recorded V/S: Last Vital Signs Temp 97.8 F 03/27/21 09:12 Pulse 78 03/27/21 09:12 Resp 18 03/27/21 09:12 BP 121/67 03/27/21 09:12 Pulse Ox 95 03/27/21 09:12 - Orders/Labs/Meds Orders: Active Orders 24 hr Category Date Time Status Peripheral IV Insertion Adult [OM.PC] Stat Oth 03/27/21 09:40 Ordered Labs: Laboratory Tests 03/27/21 03/27/21 03/27/21 Range/Units 10:00 10:00 11:57 WBC 6.76 (3.98-10.04) K/mm3 RBC 3.29 L (3.98-5.22) M/mm3 Hgb 10.0 L (11.2-15.7) gm/dl Hct 31.8 L (34.1-44.9) % MCV 96.7 H D (79.4-94.8) fl MCH 30.4 (25.6-32.2) pg MCHC 31.4 L (32.2-35.5) g/dl RDW Std Deviation 48.2 H (36.4-46.3) fL Plt Count 275 D (182-369) K/mm3 MPV 8.8 L (9.4-12.3) fl Neut % (Auto) 72.6 H (34.0-71.1) % Lymph % (Auto) 13.5 L (19.3-51.7) % [place] % (Auto) 13.9 H (4.7-12.5) % Eos % (Auto) 0 L (0.7-5.8) Baso % (Auto) 0.0 L (0.1-1.2) % Neut # (Auto) 4.91 (1.56-6.13) K/mm3 Lymph # (Auto) 0.91 L (1.18-3.74) K/mm3 [place] # (Auto) 0.94 H (0.24-0.36) K/mm3 Eos # (Auto) 0.00 L (0.04-0.36) K/mm3 Baso # (Auto) 0.00 L (0.01-0.08) K/mm3 Sodium 138 (136-145) mEq/L Potassium 4.0 (3.5-5.1) mEq/L Chloride 101 (98-107) mEq/L Carbon Dioxide 30 (21-32) mEq/L Anion Gap 11.0 (5-15) BUN 14 (7-18) mg/dL Creatinine 0.9 (0.55-1.02) mg/dL Est Cr Clr Drug Dosing TNP Estimated GFR (MDRD) 59 (>60) mL/min BUN/Creatinine Ratio 15.6 (14-18) Glucose 94 (70-99) mg/dL Calcium 9.3 (8.5-10.1) mg/dL Total Bilirubin 0.2 (0.2-1.0) mg/dL AST 24 (15-37) U/L ALT 22 (14-59) U/L Alkaline Phosphatase 80 (46-116) U/L Total Protein 6.6 (6.4-8.2) g/dl Albumin 3.5 (3.4-5.0) g/dl Globulin 3.1 gm/dL Albumin/Globulin Ratio 1.1 (1-2) SARS-CoV-2 RNA (VANESA) Negative (NEGATIVE) Meds: Medications Discontinued Medications Generic Name Dose Route Start Last Admin Trade Name Freq PRN Reason Stop Dose Admin Sodium Chloride 1,000 mls @ 150 mls/hr 03/27/21 09:45 03/27/21 10:51 Sodium Chloride 0.45% IV 150 mls/hr ASDIRECTED AREN Administration Sodium Chloride 10 ml 03/27/21 09:40 03/27/21 10:51 Sodium Chloride 0.9% 10 Ml Syringe FLUSH 10 ml ASDIRECTED PRN Administration Keep Vein Open - Re-Assessments/Exams Free Text/Narrative Re-Assessment/Exam: 03/27/21 11:35. Head CT showed a small area oaf increased density L side of the brainstem suspicisou fo small area of hemorrhage, see Radiologist report for details. As noted this was called a stroke alert after patient arrival due to sx of R leg weakness. Last known well 3 days ago. At time of reexam a short time ago she does have increased strength for exam on arrival. She now is able to partially lift R leg and foot but not able to maintain off of cot for more than about 2 seconds. BP remains in the 120 range. 11:45. We are on diversion at this time. I did visit with our Hospitalist in case a bed would open later today. He is uncomfortable to have this patient admitted here with the finding of small brainstem hemorrhage. 12:05. Both [facility] are on full diversion 13;35. After visiting with Dr Moulton, [facility], [place] and Dr Dumont, Neurosurgeon workers' compensation mediator they do accept patient in transfer. BP 105/73. On re exam she is still able to lift R ankle and foot off of the cot but not hold or maintain off of cot more than [address] Moulton, [facility] [place], accepting Phys. We will send her by ground ambulance. Departure - Departure Time of Disposition: 13:25 Disposition: DC/Tfer to Acute Hospital 02 Clinical Impression: Hemorrhagic stroke Leg weakness Qualifiers: Laterality: right Qualified Code(s): R29.898 - Other symptoms and signs involving the musculoskeletal system - Discharge Information Referrals: PCP,None [Ordering Only Provider] - Forms: ED Department Discharge Sepsis Event Note (ED) - Evaluation Sepsis Screening Result: No Definite Risk - Focused Exam Vital Signs: Vital Signs Temp Pulse Resp BP Pulse Ox 03/27/21 09:12 97.8 F 78 18 121/67 95 - My Orders Last 24 Hours: My Active Orders 03/27/21 09:40 Peripheral IV Insertion Adult [OM.PC] Stat - Assessment/Plan Last 24 Hours: My Active Orders 03/27/21 09:40 Peripheral IV Insertion Adult [OM.PC] Stat
== END 2021-03-27 14:15 ==
LOC: JD.ED 08:57
DX: I62.9 Nontraumatic intracranial hemorrhage, unspecified (principal); I48.91 Unspecified atrial fibrillation; E78.00 Pure hypercholesterolemia, unspecified; I10 Essential (primary) hypertension; E03.9 Hypothyroidism, unspecified; Z87.891 Personal history of nicotine dependence; Z91.041 Radiographic dye allergy status; Z88.4 Allergy status to anesthetic agent; Z88.0 Allergy status to penicillin; Z91.012 Allergy to eggs; Z79.82 Long term (current) use of aspirin; Z79.899 Other long term (current) drug therapy; Z20.822 Contact with and (suspected) exposure to COVID-19
CPT/HCPCS: 36415; 70450; 80053; 85025; 93005; 99285; U0002

== ENCOUNTER 2021-04-26 08:55 | Inpatient (IN) | payer MEDICARE, BC ==
[2021-04-26] MEDS ORDERED: Sodium Chloride 0.9% 1,000 ML IV ONE ×4 (09:16→12:41)
[2021-04-26 10:02] LABS: CORONAVIRUS COVID-19 NAA NEGATIVE (NEGATIVE)
--- NOTE | 2021-04-26 10:53 | CR ---
Chest: Frontal view of the chest was obtained. Comparison: Prior chest x-ray of 12/04/20. Nodular densities are seen within the right lung base. Patchy areas of increased density are seen within the left mid and lower lung. Heart size is slightly enlarged. Tortuous thoracic aorta is seen. Right-sided infusion catheter is seen. Bony structures show nothing acute. Impression: 1. Increased density within left mid and lower lung suspicious for possible pneumonia. 2. Nodular densities within the right lung suspicious for metastatic disease. 3. Please consider contrast-enhanced chest CT study to further evaluate. Diagnostic code #3
[2021-04-26] MEDS ORDERED: LORazepam 2 MG/ML SDV IVPUSH ONE ×2 (13:05→15:25)
--- NOTE | 2021-04-26 15:08 | EDM.PDOC ---
ED HPI GENERAL MEDICAL PROBLEM - General Chief Complaint: Respiratory Problem Stated Complaint: [facility]EL[facility] AMB Time Seen by Provider: 04/26/21 09:05 Source of Information: Reports: EMS, Family History Limitations: Reports: Altered Mental Status - History of Present Illness INITIAL COMMENTS - FREE TEXT/NARRATIVE: Patient is an 86-year-old female brought in for altered mental status and hypoxia. Patient's oxygen saturation was in the 60s in the field. 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 Granddaughter states she also has mets to her liver. Patient had been doing fine until recently even a day or so ago she was up and ambulatory and was able to have conversation. There is been no fever or chills. Patient has had no coughing or nausea or d iarrhea. Patient was noted to have 1 bout of vomiting today and may have an aspiration type pneumonia. She is unable to give us any history whatsoever. Patient has had both radiation and chemotherapy recently for her cancers. She was just recently discharged from the hospital. Patient had been full CODE STATUS 3 weeks ago but the family who is able to speak for her currently has agreed that she should be DNR/DNI CODE STATUS. The did not want any pressors to be given but were okay with us giving her fluids. Onset: Unknown/Unsure Duration: Getting Worse Severity: Severe - Related Data Allergies Allergy/AdvReac Type Severity Reaction Status Date / Time Iodinated Contrast Media Allergy Severe Swelling Verified 03/27/21 09:19 [Iodinated Contrast- Oral and IV Dye] lidocaine Allergy Severe Swelling Verified 03/27/21 09:19 egg Allergy Intermediate Hives Verified 04/26/21 12:43 Penicillins Allergy Intermediate Hives Verified 04/26/21 12:43 Home Meds: Home Meds Aspirin [Lo-Dose Aspirin EC] 81 mg PO DAILY 08/09/18 [History] Acetaminophen [Tylenol Arthritis] 1 tab PO Q8H PRN 05/28/19 [History] Calcium Carb, Citrate/Vit D3 [Calcium + D3 ER Tablet] 2 tab PO DAILY 05/28/19 [History] Rosuvastatin Calcium [Crestor] 40 mg PO BEDTIME 05/28/19 [History] Diltiazem [Cardizem CD] 120 mg PO DAILY 04/26/21 [History] Ezetimibe 10 mg PO BEDTIME 04/26/21 [History] Levothyroxine 112 mcg PO ACBREAKFAST 04/26/21 [History] Pantoprazole [ProTONIX] 40 mg PO ACBREAKFAST 04/26/21 [History] Vit A/Vit C/Vit E/Zinc/Copper [Preservision] 2 each PO DAILY 04/26/21 [History] dexAMETHasone [Dexamethasone] 4 mg PO DAILY 04/26/21 [History] Past Medical History HEENT History: Reports: Macular Degeneration Cardiovascular History: Reports: Afib, High Cholesterol, Hypertension Respiratory History: Reports: Sleep Apnea Other Respiratory History: wears o2 at noc Gastrointestinal History: Reports: GERD Other [employer] History: hysterectomy Endocrine/Metabolic History: Reports: Hypothyroidism Oncologic (Cancer) History: Reports: Other (See Below) Other Oncologic History: has a cancer spot on her lungs and on her liver;started chemo in October and has had 3 rounds already - Infectious Disease History Infectious Disease History: Reports: Novel Coronavirus - Past Surgical History GI Surgical History: Reports: Cholecystectomy, Hernia, Inguinal Female Surgical History: Reports: Hysterectomy Social & Family History - Tobacco Use Tobacco Use Status *Q: Unknown Ever Used Tobacco Second Hand Smoke Exposure: No - Caffeine Use Caffeine Use: Reports: Coffee - Living Situation & Occupation Living situation: Reports: Occupation: Retired ED ROS GENERAL - Review of Systems Review Of Systems: Unable To Obtain Reason Not Obtained: Altered mental status nonverbal patient. ED EXAM, GENERAL - Physical Exam Exam: See Below Exam Limited By: Altered Mental Status General Appearance: Obtunded, Mild Distress Head: Normocephalic Neck: Normal Inspection Respiratory/Chest: Respiratory Distress, Decreased Breath Sounds Cardiovascular: No Edema, Tachycardia GI/Abdominal: Soft, Non-Tender, No Organomegaly, No Distention Extremities: Normal Inspection Neurological: Unresponsive Skin Exam: Warm, Dry, Normal Color Course - Vital Signs Text/Narrative:: Patient remained critically ill throughout her ER course. She was extremely hypotensive with her systolic blood pressure mainly being in the 70s and decreasing to the 60s. Clinically patient was very dehydrated and received 2 and half liters of fluid. Her initial lactate was 5.2. Repeat lactate after IV fluids was 3.9. Patient's chest x-ray shows her to have a new infiltrate on the left lower and midlung. She has a lung mass on the right lung. Patient's D-dimer was also very elevated but she is unknown to static cancer patient. Patient was discussed with Dr. Jiménez our hospitalist who is willing to admit patient at this time. Patient's family is aware that I feel it is unlikely she will survive this hospitalization. Last Recorded V/S: Last Vital Signs Temp 97.0 F 04/26/21 09:09 Pulse 131 H 04/26/21 09:09 Resp 38 H 04/26/21 09:09 BP 77/50 L 04/26/21 09:09 Pulse Ox 90 L 04/26/21 15:17 - Orders/Labs/Meds Orders: Active Orders 24 hr Category Date Time Status Oxygen Therapy [RC] ASDIRECTED Care 04/26/21 09:13 Active BLOOD CULTURE [MREF] Stat Lab 04/26/21 09:27 Received BLOOD CULTURE [MREF] Stat Lab 04/26/21 09:45 Received Blood Culture x2 Reflex Set [OM.PC] Stat Oth 04/26/21 09:13 Ordered RT Oxygen High Flow [RESPCARE] Stat Oth 04/26/21 10:56 Active Medication Orders Acetaminophen (Acetaminophen 650 Mg Supp) 650 mg RECTAL Q4H PRN PRN Reason: Pain (mild 1-3) Atropine Sulfate (Atropine 1% Ophth Soln 5 Ml Bottle) 0 ml SL Q2H PRN PRN Reason: Excessive secretions Lorazepam (Lorazepam 2 Mg/Ml Sdv) 1.5 mg IVPUSH Q4H PRN PRN Reason: Anxiety Miscellaneous Information (Remove Patch) 0 ea TRDERM Q72H [facility] Morphine Sulfate (Morphine 2 Mg/Ml Syringe) 2 mg IVPUSH Q2H PRN PRN Reason: Pain (severe 7-10) Stop: 04/27/21 15:25 Scopolamine (Scopolamine 1.5 Mg Transdermal Patch) 1.5 mg TRDERM Q72H AREN Labs: Laboratory Tests 04/26/21 04/26/21 04/26/21 Range/Units 09:00 09:00 09:00 WBC 9.07 (3.98-10.04) K/mm3 RBC 4.56 (3.98-5.22) M/mm3 Hgb 13.8 D (11.2-15.7) gm/dl Hct 41.6 (34.1-44.9) % MCV 91.2 D (79.4-94.8) fl MCH 30.3 (25.6-32.2) pg MCHC 33.2 (32.2-35.5) g/dl RDW Std Deviation 45.4 (36.4-46.3) fL Plt Count 260 (182-369) K/mm3 MPV 9.5 (9.4-12.3) fl Neutrophils % (Manual) 76 H (40-60) % Band Neutrophils % 9 (0-10) % Lymphocytes % (Manual) 10 L (20-40) % Atypical Lymphs % 0 % Immat Monocytes % (Man) 0 Monocytes % (Manual) 3 (2-10) % Eosinophils % (Manual) 0 L (0.7-5.8) % Basophils % (Manual) 0 L (0.1-1.2) Metamyelocytes % 0 Myelocytes % 2 Promyelocytes % 0 Blast Cells % 0 Plasma Cell % (Manual) 0 Nucleated RBCs 0.0 % Platelet Estimate Adequate RBC Morph Comment Normal D-Dimer, Quantitative 4.88 H (0.19-0.50) mg/L Sodium 136 (136-145) mEq/L Potassium 4.2 (3.5-5.1) mEq/L Chloride 98 (98-107) mEq/L Carbon Dioxide 25 (21-32) mEq/L Anion Gap 17.2 H (5-15) BUN 35 H (7-18) mg/dL Creatinine 2.0 H (0.55-1.02) mg/dL Est Cr Clr Drug Dosing TNP Estimated GFR (MDRD) 24 (>60) mL/min BUN/Creatinine Ratio 17.5 (14-18) Glucose 114 H (70-99) mg/dL Lactic Acid (0.4-2.0) mmol/L Calcium 9.3 (8.5-10.1) mg/dL Total Bilirubin 1.0 (0.2-1.0) mg/dL AST 117 H (15-37) U/L ALT 298 H (14-59) U/L Alkaline Phosphatase 75 (46-116) U/L Troponin I < 0.017 (0.00-0.056) ng/mL Total Protein 6.0 L (6.4-8.2) g/dl Albumin 2.6 L (3.4-5.0) g/dl Globulin 3.4 gm/dL Albumin/Globulin Ratio 0.8 L (1-2) Influenza Type A RNA (NEGATIVE) Influenza Type B RNA (NEGATIVE) SARS-CoV-2 RNA (VANESA) (NEGATIVE) 04/26/21 04/26/21 04/26/21 Range/Units 09:00 09:21 12:18 WBC (3.98-10.04) K/mm3 RBC (3.98-5.22) M/mm3 Hgb (11.2-15.7) gm/dl Hct (34.1-44.9) % MCV (79.4-94.8) fl MCH (25.6-32.2) pg MCHC (32.2-35.5) g/dl RDW Std Deviation (36.4-46.3) fL Plt Count (182-369) K/mm3 MPV (9.4-12.3) fl Neutrophils % (Manual) (40-60) % Band Neutrophils % (0-10) % Lymphocytes % (Manual) (20-40) % Atypical Lymphs % % Immat Monocytes % (Man) Monocytes % (Manual) (2-10) % Eosinophils % (Manual) (0.7-5.8) % Basophils % (Manual) (0.1-1.2) Metamyelocytes % Myelocytes % Promyelocytes % Blast Cells % Plasma Cell % (Manual) Nucleated RBCs % Platelet Estimate RBC Morph Comment D-Dimer, Quantitative (0.19-0.50) mg/L Sodium (136-145) mEq/L Potassium (3.5-5.1) mEq/L Chloride (98-107) mEq/L Carbon Dioxide (21-32) mEq/L Anion Gap (5-15) BUN (7-18) mg/dL Creatinine (0.55-1.02) mg/dL Est Cr Clr Drug Dosing Estimated GFR (MDRD) (>60) mL/min BUN/Creatinine Ratio (14-18) Glucose (70-99) mg/dL Lactic Acid 5.4 H* 3.9 H* (0.4-2.0) mmol/L Calcium (8.5-10.1) mg/dL Total Bilirubin (0.2-1.0) mg/dL AST (15-37) U/L ALT (14-59) U/L Alkaline Phosphatase (46-116) U/L Troponin I (0.00-0.056) ng/mL Total Protein (6.4-8.2) g/dl Albumin (3.4-5.0) g/dl Globulin gm/dL Albumin/Globulin Ratio (1-2) Influenza Type A RNA Negative (NEGATIVE) Influenza Type B RNA Negative (NEGATIVE) SARS-CoV-2 RNA (VANESA) Negative (NEGATIVE) Meds: Medications Generic Name Dose Route Start Last Admin Trade Name Freq PRN Reason Stop Dose Admin Acetaminophen 650 mg 04/26/21 15:24 Acetaminophen 650 Mg Supp RECTAL Q4H PRN Pain (mild 1-3) Atropine Sulfate 0 ml 04/26/21 15:28 Atropine 1% Ophth Soln 5 Ml Bottle SL Q2H PRN Excessive secretions Lorazepam 1.5 mg 04/26/21 15:26 Lorazepam 2 Mg/Ml Sdv IVPUSH Q4H PRN Anxiety Miscellaneous Information 0 ea 04/29/21 15:30 Remove Patch TRDERM Q72H [facility] Morphine Sulfate 2 mg 04/26/21 15:24 Morphine 2 Mg/Ml Syringe IVPUSH 04/27/21 15:25 Q2H PRN Pain (severe 7-10) Scopolamine 1.5 mg 04/26/21 15:30 Scopolamine 1.5 Mg Transdermal Patch TRDERM Q72H AREN Discontinued Medications Generic Name Dose Route Start Last Admin Trade Name Roger PRN Reason Stop Dose Admin Atropine Sulfate 0 ml 04/26/21 15:27 Atropine 1% Ophth Soln 5 Ml Bottle SL 04/26/21 15:28 ONETIME ONE Sodium Chloride 1,000 mls @ 1,000 mls/hr 04/26/21 09:16 04/26/21 09:23 Normal Saline IV 04/26/21 10:15 1,000 mls/hr ONETIME ONE Administration Sodium Chloride 1,000 mls @ 250 mls/hr 04/26/21 12:23 04/26/21 12:52 Normal Saline IV 04/26/21 16:22 Not Given ONETIME ONE Sodium Chloride 1,000 mls @ 250 mls/hr 04/26/21 12:41 04/26/21 13:14 Normal Saline IV 04/26/21 16:40 250 mls/hr ONETIME ONE Administration Lorazepam 1 mg 04/26/21 13:05 04/26/21 13:14 Lorazepam 2 Mg/Ml Sdv IVPUSH 04/26/21 13:06 1 mg ONETIME ONE Administration Lorazepam 1 mg 04/26/21 15:25 Lorazepam 2 Mg/Ml Sdv IVPUSH 04/26/21 15:26 ONETIME ONE Morphine Sulfate 2 mg 04/26/21 15:40 Morphine 2 Mg/Ml Syringe IVPUSH 04/26/21 15:41 ONETIME ONE Departure - Departure Time of Disposition: 15:25 Disposition: Admitted As Inpatient 64 Condition: Critical Clinical Impression: Hypoxemia, Pneumonia, Metastatic cancer to brain, Lung cancer, Hypotension, Sepsis - Discharge Information Sepsis Event Note (ED) - Evaluation Sepsis Screening Result: Severe Sepsis Risk - Focused Exam Vital Signs: Vital Signs Temp Pulse Resp BP Pulse Ox Pulse Ox Pulse Ox 04/26/21 09:56 93 L 04/26/21 09:23 88 L 04/26/21 09:09 97.0 F 131 H 38 H 77/50 L 89 L - My Orders Last 24 Hours: My Active Orders 04/26/21 09:13 Oxygen Therapy [RC] ASDIRECTED Blood Culture x2 Reflex Set [OM.PC] Stat 04/26/21 09:27 BLOOD CULTURE [MREF] Stat 04/26/21 09:45 BLOOD CULTURE [MREF] Stat 04/26/21 10:56 RT Oxygen High Flow [RESPCARE] Stat - Assessment/Plan Last 24 Hours: My Active Orders 04/26/21 09:13 Oxygen Therapy [RC] ASDIRECTED Blood Culture x2 Reflex Set [OM.PC] Stat 04/26/21 09:27 BLOOD CULTURE [MREF] Stat 04/26/21 09:45 BLOOD CULTURE [MREF] Stat 04/26/21 10:56 RT Oxygen High Flow [RESPCARE] Stat
[2021-04-26] MEDS ORDERED: Acetaminophen 650 MG Supp RECTAL PRN (15:24)
[2021-04-26] MEDS ORDERED: Morphine 2 MG/ML SYRINGE IVPUSH PRN (15:24)
[2021-04-26] MEDS ORDERED: LORazepam 2 MG/ML SDV IVPUSH PRN (15:26)
[2021-04-26] MEDS ORDERED: Atropine 1% Ophth Soln 5 ML BOTTLE SL ONE (15:27)
[2021-04-26] MEDS ORDERED: Atropine 1% Ophth Soln 5 ML BOTTLE SL PRN (15:28)
[2021-04-26] MEDS ORDERED: Scopolamine 1.5 MG Transdermal Patch TRDERM SCH (15:30)
--- NOTE | 2021-04-26 15:30 | PCM.HP.2 ---
H&P History of Present Illness - General Date of Service: 04/26/21 Admit Problem/Dx: Admission Diagnosis/Problem Admission Diagnosis/Problem Hypoxia Source of Information: Family, [facility] Records, Old Records, Provider, RN Notes Reviewed History Limitations: Reports: Altered Mental Status, Respiratory Distress - History of Present Illness Initial Comments - Free Text/Narative: This is an 86-year-old female who presents to ED via [facility] on 04/26/2021 for an altered mental status and hypoxia. Patient reportedly lives at [facility] in [place]. She was found today during rounds to have emesis around her and it is believed she likely aspirated. Oxygen saturations reportedly 60% on EMS arrival. 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 She has liver metastasis as well. Patient is completely obtunded in the ED. She is recently had radiation and chemotherapy for cancers and was just recently discharged from the hospital. She reportedly was ambulating and able to carry conversation up until about a day ago. She was a full code at [facility]. In the ED temp is 97 F. Pulse 131. Respirations 38. Blood pressure 77/50. Oxygen saturations 90% on high flow 60 L with FiO2 of 90%.. Labs were obtained showing a WBC of 9.07. Hemoglobin 13.8. Platelet 260,000. Neutrophils are elevated at 76%. There are 9% band neutrophils noted. D-dimer is very high at 4.88. Sodium 136. Potassium 4.2. Chloride 98. Carbon dioxide 25. Anion gap is 17.2. BUN is 35. Creatinine 2.0. GFR is 24. Glucose 114. Bilirubin 1.0. AST is 117. ALT 298. Alkaline phosphatase 75. Troponin is less than 0.017. Protein is 6.0. Albumin 2.6. Lactic acid is very high at 5.4. Influenza a and B are negative. SARS-CoV-2 RNA are negative. Chest x-ray is obtained showing increased density within the left mid and lower lung suspicious for possible pneumonia. Nodular densities within the right lung suspicious for metastatic disease are also noted. Consider contrast-enhanced CT study to further evaluate. Discussion ensues with the family and they would not like patient started on pressors however they are okay with her getting fluids. She is given 2 fluid boluses of 1 L. Lactic acid does come down to 3.9. She is started on high flow 60 L with a FiO2 of 90%. Ultimately family decides patient should be comfort ca re and they would not like to pursue further treatment. She is ultimately mated to the floor for comfort care and expected to very shortly. Discussion was had with the family and they ultimately do not want any more labs. They want pain control medications and the patient to be removed from oxygen. She carries a history of atrial fibrillation, HLD, HTN, sleep apnea, chronic nocturnal O2 use, GERD, hypothyroidism, liver, lung, and brain cancer. She has had the Covid-[address] Lugo. - Related Data Allergies/Adverse Reactions: Allergies Allergy/AdvReac Type Severity Reaction Status Date / Time Iodinated Contrast Media Allergy Severe Swelling Verified 03/27/21 09:19 [Iodinated Contrast- Oral and IV Dye] lidocaine Allergy Severe Swelling Verified 03/27/21 09:19 egg Allergy Intermediate Hives Verified 04/26/21 12:43 Penicillins Allergy Intermediate Hives Verified 04/26/21 12:43 Home Medications: Home Meds Aspirin [Lo-Dose Aspirin EC] 81 mg PO DAILY 08/09/18 [History] Acetaminophen [Tylenol Arthritis] 1 tab PO Q8H PRN 05/28/19 [History] Calcium Carb, Citrate/Vit D3 [Calcium + D3 ER Tablet] 2 tab PO DAILY 05/28/19 [History] Rosuvastatin Calcium [Crestor] 40 mg PO BEDTIME 05/28/19 [History] Diltiazem [Cardizem CD] 120 mg PO DAILY 04/26/21 [History] Ezetimibe 10 mg PO BEDTIME 04/26/21 [History] Levothyroxine 112 mcg PO ACBREAKFAST 04/26/21 [History] Pantoprazole [ProTONIX] 40 mg PO ACBREAKFAST 04/26/21 [History] Vit A/Vit C/Vit E/Zinc/Copper [Preservision] 2 each PO DAILY 04/26/21 [History] dexAMETHasone [Dexamethasone] 4 mg PO DAILY 04/26/21 [History] Past Medical History HEENT History: Reports: Macular Degeneration Cardiovascular History: Reports: Afib, High Cholesterol, Hypertension Respiratory History: Reports: Sleep Apnea Other Respiratory History: wears o2 at noc Gastrointestinal History: Reports: GERD Other OB/BYN History: hysterectomy Endocrine/Metabolic History: Reports: Hypothyroidism Oncologic (Cancer) History: Reports: Other (See Below) Other Oncologic History: has a cancer spot on her lungs and on her liver;started chemo in October and has had 3 rounds already - Infectious Disease History Infectious Disease History: Reports: Novel Coronavirus - Past Surgical History GI Surgical History: Reports: Cholecystectomy, Hernia, Inguinal Female Surgical History: Reports: Hysterectomy Social & Family History - Tobacco Use Tobacco Use Status *Q: Unknown Ever Used Tobacco Second Hand Smoke Exposure: No - Caffeine Use Caffeine Use: Reports: Coffee - Living Situation & Occupation Living situation: Reports: Occupation: Retired H&P Review of Systems - Review of Systems: Review Of Systems: Unable To Obtain Reason Not Obtained: Patient obtunded Exam - Exam Exam: See Below - Vital Signs Vital Signs: Last Vital Signs Temp 97.0 F 04/26/21 09:09 Pulse 131 H 04/26/21 09:09 Resp 38 H 04/26/21 09:09 BP 77/50 L 04/26/21 09:09 Pulse Ox 90 L 04/26/21 15:17 - Exam Quality Assessment: Supplemental Oxygen (High flow 60 L with FiO2 of 90%), Other (Patient is very pallid). No: Urinary Catheter, DVT Prophylaxis (Comfort cares) General: Obtunded HEENT: Conjunctiva Clear. No: Mucosa Moist & Dwight (Dry) Neck: Supple, Trachea Midline Lungs: Decreased Breath Sounds, Rhonchi. No: Normal Respiratory Effort (Tachypnea) Cardiovascular: Regular Rate, Irregular Rhythm GI/Abdominal Exam: Normal Bowel Sounds, Soft, Non-Tender, No Distention (Female) Exam: Deferred Rectal (Female) Exam: Deferred Extremities: No Pedal Edema, Other (Cool extremities) Skin: Cool Neurological: Other (Unable to assess as patient is unresponsive) - Patient Data Lab Results Last 24 hrs: Laboratory Results - last 24 hr 04/26/21 04/26/21 04/26/21 Range/Units 09:00 09:00 09:00 WBC 9.07 (3.98-10.04) K/mm3 RBC 4.56 (3.98-5.22) M/mm3 Hgb 13.8 D (11.2-15.7) gm/dl Hct 41.6 (34.1-44.9) % MCV 91.2 D (79.4-94.8) fl MCH 30.3 (25.6-32.2) pg MCHC 33.2 (32.2-35.5) g/dl RDW Std Deviation 45.4 (36.4-46.3) fL Plt Count 260 (182-369) K/mm3 MPV 9.5 (9.4-12.3) fl Neutrophils % (Manual) 76 H (40-60) % Band Neutrophils % 9 (0-10) % Lymphocytes % (Manual) 10 L (20-40) % Atypical Lymphs % 0 % Immat Monocytes % (Man) 0 Monocytes % (Manual) 3 (2-10) % Eosinophils % (Manual) 0 L (0.7-5.8) % Basophils % (Manual) 0 L (0.1-1.2) Metamyelocytes % 0 Myelocytes % 2 Promyelocytes % 0 Blast Cells % 0 Plasma Cell % (Manual) 0 Nucleated RBCs 0.0 % Platelet Estimate Adequate RBC Morph Comment Normal D-Dimer, Quantitative 4.88 H (0.19-0.50) mg/L Sodium 136 (136-145) mEq/L Potassium 4.2 (3.5-5.1) mEq/L Chloride 98 (98-107) mEq/L Carbon Dioxide 25 (21-32) mEq/L Anion Gap 17.2 H (5-15) BUN 35 H (7-18) mg/dL Creatinine 2.0 H (0.55-1.02) mg/dL Est Cr Clr Drug Dosing TNP Estimated GFR (MDRD) 24 (>60) mL/min BUN/Creatinine Ratio 17.5 (14-18) Glucose 114 H (70-99) mg/dL Lactic Acid (0.4-2.0) mmol/L Calcium 9.3 (8.5-10.1) mg/dL Total Bilirubin 1.0 (0.2-1.0) mg/dL AST 117 H (15-37) U/L ALT 298 H (14-59) U/L Alkaline Phosphatase 75 (46-116) U/L Troponin I < 0.017 (0.00-0.056) ng/mL Total Protein 6.0 L (6.4-8.2) g/dl Albumin 2.6 L (3.4-5.0) g/dl Globulin 3.4 gm/dL Albumin/Globulin Ratio 0.8 L (1-2) Influenza Type A RNA (NEGATIVE) Influenza Type B RNA (NEGATIVE) SARS-CoV-2 RNA (VANESA) (NEGATIVE) 04/26/21 04/26/21 04/26/21 Range/Units 09:00 09:21 12:18 WBC (3.98-10.04) K/mm3 RBC (3.98-5.22) M/mm3 Hgb (11.2-15.7) gm/dl Hct (34.1-44.9) % MCV (79.4-94.8) fl MCH (25.6-32.2) pg MCHC (32.2-35.5) g/dl RDW Std Deviation (36.4-46.3) fL Plt Count (182-369) K/mm3 MPV (9.4-12.3) fl Neutrophils % (Manual) (40-60) % Band Neutrophils % (0-10) % Lymphocytes % (Manual) (20-40) % Atypical Lymphs % % Immat Monocytes % (Man) Monocytes % (Manual) (2-10) % Eosinophils % (Manual) (0.7-5.8) % Basophils % (Manual) (0.1-1.2) Metamyelocytes % Myelocytes % Promyelocytes % Blast Cells % Plasma Cell % (Manual) Nucleated RBCs % Platelet Estimate RBC Morph Comment D-Dimer, Quantitative (0.19-0.50) mg/L Sodium (136-145) mEq/L Potassium (3.5-5.1) mEq/L Chloride (98-107) mEq/L Carbon Dioxide (21-32) mEq/L Anion Gap (5-15) BUN (7-18) mg/dL Creatinine (0.55-1.02) mg/dL Est Cr Clr Drug Dosing Estimated GFR (MDRD) (>60) mL/min BUN/Creatinine Ratio (14-18) Glucose (70-99) mg/dL Lactic Acid 5.4 H* 3.9 H* (0.4-2.0) mmol/L Calcium (8.5-10.1) mg/dL Total Bilirubin (0.2-1.0) mg/dL AST (15-37) U/L ALT (14-59) U/L Alkaline Phosphatase (46-116) U/L Troponin I (0.00-0.056) ng/mL Total Protein (6.4-8.2) g/dl Albumin (3.4-5.0) g/dl Globulin gm/dL Albumin/Globulin Ratio (1-2) Influenza Type A RNA Negative (NEGATIVE) Influenza Type B RNA Negative (NEGATIVE) SARS-CoV-2 RNA (VANESA) Negative (NEGATIVE) Result Diagrams: 04/26/21 09:00 04/26/21 09:00 Sepsis Event Note - Evaluation Sepsis Screening Result: Severe Sepsis Risk - Focused Exam Vital Signs: Vital Signs Temp Pulse Resp BP Pulse Ox Pulse Ox Pulse Ox 04/26/21 15:17 90 L 04/26/21 14:44 90 L 04/26/21 09:56 93 L 04/26/21 09:23 88 L 04/26/21 09:09 97.0 F 131 H 38 H 77/50 L 89 L - Problem List (1) End of life care SNOMED Code(s): 569281748, 421233132 ICD Code: Z51.5 - ENCOUNTER FOR PALLIATIVE CARE Status: Acute Priority: High Current Visit: Yes (2) Hypotension SNOMED Code(s): 41682994 ICD Code: I95.9 - HYPOTENSION, UNSPECIFIED Status: Acute Priority: High Current Visit: Yes Qualifiers: Hypotension type: unspecified hypotension type Qualified Code(s): I95.9 - Hypotension, unspecified (3) Hypoxemia SNOMED Code(s): 886652790 ICD Code: R09.02 - HYPOXEMIA Status: Acute Priority: High Current Visit: Yes (4) Lung cancer SNOMED Code(s): 302002824 ICD Code: C34.90 - MALIGNANT NEOPLASM OF UNSP PART OF UNSP BRONCHUS OR LUNG Status: Chronic Priority: High Current Visit: Yes Qualifiers: Laterality: unspecified laterality Lung location: unspecified part of lung Qualified Code(s): C34.90 - Malignant neoplasm of unspecified part of unspecified bronchus or lung (5) Metastatic cancer to brain Status: Acute Priority: High Current Visit: Yes (6) Pneumonia SNOMED Code(s): 187261622 ICD Code: J18.9 - PNEUMONIA, UNSPECIFIED ORGANISM Status: Acute Priority: High Current Visit: Yes Qualifiers: Pneumonia type: due to unspecified organism Laterality: left Lung location: unspecified part of lung Qualified Code(s): J18.9 - Pneumonia, unspecified organism (7) Sepsis SNOMED Code(s): 28256337 ICD Code: A41.9 - SEPSIS, UNSPECIFIED ORGANISM Status: Acute Priority: High Current Visit: Yes Qualifiers: Sepsis type: sepsis due to unspecified organism Sepsis acute organ dysfunction status: with acute organ dysfunction Severe sepsis acute organ dysfunction type: acute respiratory failure Acute respiratory failure type: with hypoxia Severe sepsis shock status: with septic shock Qualified Code(s): A41.9 - Sepsis, unspecified organism; R65.21 - Severe sepsis with septic shock; J96.01 - Acute respiratory failure with hypoxia (8) Macular degeneration SNOMED Code(s): 729499668 ICD Code: H35.30 - UNSPECIFIED MACULAR DEGENERATION Status: Chronic Priority: Low Current Visit: No Qualifiers: Macular degeneration type: unspecified type Eye laterality: unspecified Qualified Code(s): H35.30 - Unspecified macular degeneration (9) Afib SNOMED Code(s): 09438004 ICD Code: I48.91 - UNSPECIFIED ATRIAL FIBRILLATION Status: Chronic Priority: Medium Current Visit: No Qualifiers: Atrial fibrillation type: unspecified Qualified Code(s): I48.91 - Unspecified atrial fibrillation (10) HLD (hyperlipidemia) SNOMED Code(s): 41152643 ICD Code: E78.5 - HYPERLIPIDEMIA, UNSPECIFIED Status: Chronic Priority: Low Current Visit: No Qualifiers: Hyperlipidemia type: unspecified Qualified Code(s): E78.5 - Hyperlipidemia, unspecified (11) HTN (hypertension) SNOMED Code(s): 36772308 ICD Code: I10 - ESSENTIAL (PRIMARY) HYPERTENSION Status: Chronic Priority: Medium Current Visit: No Qualifiers: Hypertension type: unspecified Qualified Code(s): I10 - Essential (primary) hypertension (12) Sleep apnea SNOMED Code(s): 74259341 ICD Code: G47.30 - SLEEP APNEA, UNSPECIFIED Status: Chronic Priority: Low Current Visit: No Qualifiers: Sleep apnea type: unspecified type Qualified Code(s): G47.30 - Sleep apnea, unspecified (13) Dependence on nocturnal oxygen therapy SNOMED Code(s): 20166492892711 ICD Code: Z99.81 - DEPENDENCE ON SUPPLEMENTAL OXYGEN Status: Chronic Priority: Low Current Visit: No (14) GERD (gastroesophageal reflux disease) SNOMED Code(s): 746191746 ICD Code: K21.9 - GASTRO-ESOPHAGEAL REFLUX DISEASE WITHOUT ESOPHAGITIS Status: Chronic Priority: Low Current Visit: No Qualifiers: Esophagitis presence: esophagitis presence not specified Qualified Code(s): K21.9 - Gastro-esophageal reflux disease without esophagitis (15) Hypothyroidism SNOMED Code(s): 30461981 ICD Code: E03.9 - HYPOTHYROIDISM, UNSPECIFIED Status: Chronic Priority: Low Current Visit: No Qualifiers: Hypothyroidism type: unspecified Qualified Code(s): E03.9 - Hypothyroidism, unspecified (16) Acute respiratory failure SNOMED Code(s): 70560325 ICD Code: J96.00 - ACUTE RESPIRATORY FAILURE, UNSP W HYPOXIA OR HYPERCAPNIA Status: Acute Priority: High Current Visit: Yes Qualifiers: Respiratory failure complication: hypoxia Qualified Code(s): J96.01 - Acute respiratory failure with hypoxia Problem List Initiated/Reviewed/Updated: Yes Orders Last 24hrs: Active Orders 24 hr Category Date Time Status Patient Status [ADT] Routine ADT 04/26/21 14:18 Active Communication Order [RC] ASDIRECTED Care 04/26/21 15:28 Ordered Oxygen Therapy [RC] ASDIRECTED Care 04/26/21 09:13 Active Vital Signs [RC] QSHIFT Care 04/26/21 15:24 Ordered Consult to Spiritual Care [CONS] Routine Cons 04/26/21 15:24 Ordered Regular Diet [DIET] Diet 04/26/21 Dinner Ordered BLOOD CULTURE [MREF] Stat Lab 04/26/21 09:27 Received BLOOD CULTURE [MREF] Stat Lab 04/26/21 09:45 Received Acetaminophen [Tylenol] Med 04/26/21 15:24 Ordered 650 mg RECTAL Q4H PRN Atropine 1% [Atropine 1% Ophth Soln] Med 04/26/21 15:27 Once See Dose Instructions SL ONETIME ONE Atropine 1% [Atropine 1% Ophth Soln] Med 04/26/21 15:28 Ordered See Dose Instructions SL Q2H PRN LORazepam [Ativan] Med 04/26/21 15:26 Ordered 1.5 mg IVPUSH Q4H PRN Morphine Med 04/26/21 15:26 Once 2 mg IVPUSH ONETIME ONE Morphine Med 04/26/21 15:24 Ordered 2 mg IVPUSH Q2H PRN Scopolamine [Transderm-Scop] Med 04/26/21 15:30 Ordered 1.5 mg TRDERM Q72H Sodium Chloride 0.9% [Normal Saline] 1,000 ml Med 04/26/21 12:23 Stop Req IV ONETIME Sodium Chloride 0.9% [Normal Saline] 1,000 ml Med 04/26/21 12:41 Stop Req IV ONETIME Blood Culture x2 Reflex Set [OM.PC] Stat Oth 04/26/21 09:13 Ordered RT Oxygen High Flow [RESPCARE] Stat Oth 04/26/21 10:56 Active Resuscitation Status Routine Resus Stat 04/26/21 15:24 Ordered Medication Orders Acetaminophen (Acetaminophen 650 Mg Supp) 650 mg RECTAL Q4H PRN PRN Reason: Pain (mild 1-3) Atropine Sulfate (Atropine 1% Ophth Soln 5 Ml Bottle) 0 ml SL ONETIME ONE Stop: 04/26/21 15:28 Atropine Sulfate (Atropine 1% Ophth Soln 5 Ml Bottle) 0 ml SL Q2H PRN PRN Reason: Excessive secretions Sodium Chloride (Normal Saline) 1,000 mls @ 250 mls/hr IV ONETIME ONE Stop: 04/26/21 16:22 Last Admin: 04/26/21 12:52 Dose: Not Given Documented by: SUE Sodium Chloride (Normal Saline) 1,000 mls @ 250 mls/hr IV ONETIME ONE Stop: 04/26/21 16:40 Last Admin: 04/26/21 13:14 Dose: 250 mls/hr Documented by: SUE Lorazepam (Lorazepam 2 Mg/Ml Sdv) 1.5 mg IVPUSH Q4H PRN PRN Reason: Anxiety Morphine Sulfate (Morphine 2 Mg/Ml Syringe) 2 mg IVPUSH Q2H PRN PRN Reason: Pain (severe 7-10) Stop: 04/27/21 15:25 Morphine Sulfate (Morphine 2 Mg/Ml Syringe) 2 mg IVPUSH ONETIME ONE Stop: 04/26/21 15:27 Scopolamine (Scopolamine 1.5 Mg Transdermal Patch) 1.5 mg TRDERM Q72H [facility] Assessment/Plan Comment:: End of life care * Ativan as needed for anxiety * Morphine as needed for pain * Scopolamine patch for excessive secretions * Atropine drops for excessive secretions as needed * Regular diet * Bedrest * Spiritual care consultation * Family refusing further lab draws, oxygen, IV fluids, therapies, or further imaging. Inactive: Hypotension Hypoxemia Lung cancer Metastatic cancer to brain Pneumonia Sepsis Macular degeneration Afib HLD (hyperlipidemia) HTN (hypertension) Sleep apnea Dependence on nocturnal oxygen therapy GERD (gastroesophageal reflux disease) Hypothyroidism Acute respiratory failure Code status: DNR/DNI/Comfort care PCP: Dr. Lugo DVT prophylaxis: Not indicated in comfort care Social: Patient resides at [facility] Disposition: Patient mated to the floor for comfort care in the setting of severe respiratory distress. Anticipate rapid demise with removal of oxygen. - Mortality Measure Prognosis:: Poor (Patient admitted for comfort care)
[2021-04-26] MEDS ORDERED: Morphine 2 MG/ML SYRINGE IVPUSH ONE (15:40)
--- NOTE | 2021-04-26 16:39 | PCM.DCSUM1 ---
Discharge Summary - Hospital Course HPI Initial Comments: This is an 86-year-old female who presents to ED via [facility] on 04/26/2021 for an altered mental status and hypoxia. Patient reportedly lives at [facility] in [place]. She was found today during rounds to have emesis around her and it is believed she likely aspirated. Oxygen saturations reportedly 60% on EMS arrival. 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 She has liver metastasis as well. Patient is completely obtunded in the ED. She is recently had radiation and chemotherapy for cancers and was just recently discharged from the hospital. She reportedly was ambulating and able to carry conversation up until about a day ago. She was a full code at [facility]. In the ED temp is 97 F. Pulse 131. Respirations 38. Blood pressure 77/50. Oxygen saturations 90% on high flow 60 L with FiO2 of 90%.. Labs were obtained showing a WBC of 9.07. Hemoglobin 13.8. Platelet 260,000. Neutrophils are elevated at 76%. There are 9% band neutrophils noted. D-dimer is very high at 4.88. Sodium 136. Potassium 4.2. Chloride 98. Carbon dioxide 25. Anion gap is 17.2. BUN is 35. Creatinine 2.0. GFR is 24. Glucose 114. Bilirubin 1.0. AST is 117. ALT 298. Alkaline phosphatase 75. Troponin is less than 0.017. Protein is 6.0. Albumin 2.6. Lactic acid is very high at 5.4. Influenza a and B are negative. SARS-CoV-2 RNA are negative. Chest x-ray is obtained showing increased density within the left mid and lower lung suspicious for possible pneumonia. Nodular densities within the right lung suspicious for metastatic disease are also noted. Consider contrast-enhanced CT study to further evaluate. Discussion ensues with the family and they would not like patient started on pressors however they are okay with her getting fluids. She is given 2 fluid boluses of 1 L. Lactic acid does come down to 3.9. She is started on high flow 60 L with a FiO2 of 90%. Ultimately family decides patient should be comfort care and they would not like to pursue further treatment. She is ultimately mated to the floor for comfort care and expected to very shortly. Discussion was had with the family and they ultimately do not want any more labs. They want pain control medications and the patient to be removed from oxygen. She carries a history of atrial fibrillation, HLD, HTN, sleep apnea, chronic nocturnal O2 use, GERD, hypothyroidism, liver, lung, and brain cancer. She has had the Covid-[address] Lugo. Diagnosis: Stroke: No - Discharge Data Discharge Date: 04/26/21 (Admit date: 04/26/2021) Discharge Disposition: 20 Preliminary Cause of *Q: Sepsis & Multi System Organ Failure Condition: - Referral to Home Health Primary Care Physician: Ulices Lugo MD - Discharge Diagnosis/Problem(s) (1) End of life care SNOMED Code(s): 321243141, 711452143 ICD Code: Z51.5 - ENCOUNTER FOR PALLIATIVE CARE Status: Acute Priority: High Current Visit: Yes (2) Hypotension SNOMED Code(s): 93388784 ICD Code: I95.9 - HYPOTENSION, UNSPECIFIED Status: Acute Priority: High Current Visit: Yes Qualifiers: Hypotension type: unspecified hypotension type Qualified Code(s): I95.9 - Hypotension, unspecified (3) Hypoxemia SNOMED Code(s): 573045943 ICD Code: R09.02 - HYPOXEMIA Status: Acute Priority: High Current Visit: Yes (4) Lung cancer SNOMED Code(s): 082501782 ICD Code: C34.90 - MALIGNANT NEOPLASM OF UNSP PART OF UNSP BRONCHUS OR LUNG Status: Chronic Priority: High Current Visit: Yes Qualifiers: Laterality: unspecified laterality Lung location: unspecified part of lung Qualified Code(s): C34.90 - Malignant neoplasm of unspecified part of unspecified bronchus or lung (5) Metastatic cancer to brain Status: Acute Priority: High Current Visit: Yes (6) Pneumonia SNOMED Code(s): 840346754 ICD Code: J18.9 - PNEUMONIA, UNSPECIFIED ORGANISM Status: Acute Priority: High Current Visit: Yes Qualifiers: Pneumonia type: due to unspecified organism Laterality: left Lung location: unspecified part of lung Qualified Code(s): J18.9 - Pneumonia, unspecified organism (7) Sepsis SNOMED Code(s): 45347458 ICD Code: A41.9 - SEPSIS, UNSPECIFIED ORGANISM Status: Acute Priority: High Current Visit: Yes Qualifiers: Sepsis type: sepsis due to unspecified organism Sepsis acute organ dysfunction status: with acute organ dysfunction Severe sepsis acute organ dysfunction type: acute respiratory failure Acute respiratory failure type: with hypoxia Severe sepsis shock status: with septic shock Qualified Code(s): A41.9 - Sepsis, unspecified organism; R65.21 - Severe sepsis with septic shock; J96.01 - Acute respiratory failure with hypoxia (8) Macular degeneration SNOMED Code(s): 732239427 ICD Code: H35.30 - UNSPECIFIED MACULAR DEGENERATION Status: Chronic Priority: Low Current Visit: No Qualifiers: Macular degeneration type: unspecified type Eye laterality: unspecified Qualified Code(s): H35.30 - Unspecified macular degeneration (9) Afib SNOMED Code(s): 63071785 ICD Code: I48.91 - UNSPECIFIED ATRIAL FIBRILLATION Status: Chronic Priority: Medium Current Visit: No Qualifiers: Atrial fibrillation type: unspecified Qualified Code(s): I48.91 - Unspecified atrial fibrillation (10) HLD (hyperlipidemia) SNOMED Code(s): 63158761 ICD Code: E78.5 - HYPERLIPIDEMIA, UNSPECIFIED Status: Chronic Priority: Low Current Visit: No Qualifiers: Hyperlipidemia type: unspecified Qualified Code(s): E78.5 - Hyperlipidemia, unspecified (11) HTN (hypertension) SNOMED Code(s): 91139491 ICD Code: I10 - ESSENTIAL (PRIMARY) HYPERTENSION Status: Chronic Priority: Medium Current Visit: No Qualifiers: Hypertension type: unspecified Qualified Code(s): I10 - Essential (primary) hypertension (12) Sleep apnea SNOMED Code(s): 12837851 ICD Code: G47.30 - SLEEP APNEA, UNSPECIFIED Status: Chronic Priority: Low Current Visit: No Qualifiers: Sleep apnea type: unspecified type Qualified Code(s): G47.30 - Sleep apnea, unspecified (13) Dependence on nocturnal oxygen therapy SNOMED Code(s): 92438393695721 ICD Code: Z99.81 - DEPENDENCE ON SUPPLEMENTAL OXYGEN Status: Chronic Priority: Low Current Visit: No (14) GERD (gastroesophageal reflux disease) SNOMED Code(s): 071669486 ICD Code: K21.9 - GASTRO-ESOPHAGEAL REFLUX DISEASE WITHOUT ESOPHAGITIS Status: Chronic Priority: Low Current Visit: No Qualifiers: Esophagitis presence: esophagitis presence not specified Qualified Code(s): K21.9 - Gastro-esophageal reflux disease without esophagitis (15) Hypothyroidism SNOMED Code(s): 90643057 ICD Code: E03.9 - HYPOTHYROIDISM, UNSPECIFIED Status: Chronic Priority: Low Current Visit: No Qualifiers: Hypothyroidism type: unspecified Qualified Code(s): E03.9 - Hypothyroidism, unspecified (16) Acute respiratory failure SNOMED Code(s): 85928398 ICD Code: J96.00 - ACUTE RESPIRATORY FAILURE, UNSP W HYPOXIA OR HYPERCAPNIA Status: Acute Priority: High Current Visit: Yes Qualifiers: Respiratory failure complication: hypoxia Qualified Code(s): J96.01 - Acute respiratory failure with hypoxia - Patient Summary/Data Consults: Consultations 04/26/21 15:24 Consult to Spiritual Care [CONS] Routine Labs Pending at D/C: Blood cultures Hospital Course: This is an 86-year-old female who presented to our ED on 04/26/2021 with severe respiratory distress after being found down at [facility] and killed here. Patient reportedly had emesis around her and it was suspected that she aspirated. X-ray was concerning for pneumonia. Patient has known lung brain and liver metastatic disease. Patient was hypotensive and this remained despite fluid challenge. Family did report to the emergency room and determined patient should be switched from full code to comfort measures. Patient was rec eiving high flow oxygen in the ED with saturations of 90% on 60 L with an FiO2 of 90%. Patient was moved to the floor and comfort care protocol including morphine, Ativan, atropine for excessive secretions, and scopolamine patch were initiated. Plan was to medicate patient and then remove high flow oxygen. Prior to initiating this plan patient rapidly deteriorated and . Auscultation confirmed no heart tones with 2 nurses. Family was at bedside while patient . Family requesting [facility] home. Patient's body will be transferred there. - Discharge Plan Home Medications: Home Meds Aspirin [Lo-Dose Aspirin EC] 81 mg PO DAILY 08/09/18 [History] Acetaminophen [Tylenol Arthritis] 1 tab PO Q8H PRN 05/28/19 [History] Calcium Carb, Citrate/Vit D3 [Calcium + D3 ER Tablet] 2 tab PO DAILY 05/28/19 [History] Rosuvastatin Calcium [Crestor] 40 mg PO BEDTIME 05/28/19 [History] Diltiazem [Cardizem CD] 120 mg PO DAILY 04/26/21 [History] Ezetimibe 10 mg PO BEDTIME 04/26/21 [History] Levothyroxine 112 mcg PO ACBREAKFAST 04/26/21 [History] Pantoprazole [ProTONIX] 40 mg PO ACBREAKFAST 04/26/21 [History] Vit A/Vit C/Vit E/Zinc/Copper [Preservision] 2 each PO DAILY 04/26/21 [History] dexAMETHasone [Dexamethasone] 4 mg PO DAILY 04/26/21 [History] - Discharge Summary/Plan Comment DC Time >30 min.: No Total # of Minutes for Discharge Time: 25 - General Info Date of Service: 04/26/21 Admission Dx/Problem (Free Text: Admission Diagnosis/Problem Admission Diagnosis/Problem Hypoxia Subjective Update: Patient apneic and pulseless - Patient Data Vitals - Most Recent: Last Vital Signs Temp 97.0 F 04/26/21 09:09 Pulse 131 H 04/26/21 09:09 Resp 38 H 04/26/21 09:09 BP 77/50 L 04/26/21 09:09 Pulse Ox 90 L 04/26/21 15:17 Lab Results - Last 24 hrs: Laboratory Results - last 24 hr 04/26/21 04/26/21 04/26/21 Range/Units 09:00 09:00 09:00 WBC 9.07 (3.98-10.04) K/mm3 RBC 4.56 (3.98-5.22) M/mm3 Hgb 13.8 D (11.2-15.7) gm/dl Hct 41.6 (34.1-44.9) % MCV 91.2 D (79.4-94.8) fl MCH 30.3 (25.6-32.2) pg MCHC 33.2 (32.2-35.5) g/dl RDW Std Deviation 45.4 (36.4-46.3) fL Plt Count 260 (182-369) K/mm3 MPV 9.5 (9.4-12.3) fl Neutrophils % (Manual) 76 H (40-60) % Band Neutrophils % 9 (0-10) % Lymphocytes % (Manual) 10 L (20-40) % Atypical Lymphs % 0 % Immat Monocytes % (Man) 0 Monocytes % (Manual) 3 (2-10) % Eosinophils % (Manual) 0 L (0.7-5.8) % Basophils % (Manual) 0 L (0.1-1.2) Metamyelocytes % 0 Myelocytes % 2 Promyelocytes % 0 Blast Cells % 0 Plasma Cell % (Manual) 0 Nucleated RBCs 0.0 % Platelet Estimate Adequate RBC Morph Comment Normal D-Dimer, Quantitative 4.88 H (0.19-0.50) mg/L Sodium 136 (136-145) mEq/L Potassium 4.2 (3.5-5.1) mEq/L Chloride 98 (98-107) mEq/L Carbon Dioxide 25 (21-32) mEq/L Anion Gap 17.2 H (5-15) BUN 35 H (7-18) mg/dL Creatinine 2.0 H (0.55-1.02) mg/dL Est Cr Clr Drug Dosing TNP Estimated GFR (MDRD) 24 (>60) mL/min BUN/Creatinine Ratio 17.5 (14-18) Glucose 114 H (70-99) mg/dL Lactic Acid (0.4-2.0) mmol/L Calcium 9.3 (8.5-10.1) mg/dL Total Bilirubin 1.0 (0.2-1.0) mg/dL AST 117 H (15-37) U/L ALT 298 H (14-59) U/L Alkaline Phosphatase 75 (46-116) U/L Troponin I < 0.017 (0.00-0.056) ng/mL Total Protein 6.0 L (6.4-8.2) g/dl Albumin 2.6 L (3.4-5.0) g/dl Globulin 3.4 gm/dL Albumin/Globulin Ratio 0.8 L (1-2) Influenza Type A RNA (NEGATIVE) Influenza Type B RNA (NEGATIVE) SARS-CoV-2 RNA (VANESA) (NEGATIVE) 04/26/21 04/26/21 04/26/21 Range/Units 09:00 09:21 12:18 WBC (3.98-10.04) K/mm3 RBC (3.98-5.22) M/mm3 Hgb (11.2-15.7) gm/dl Hct (34.1-44.9) % MCV (79.4-94.8) fl MCH (25.6-32.2) pg MCHC (32.2-35.5) g/dl RDW Std Deviation (36.4-46.3) fL Plt Count (182-369) K/mm3 MPV (9.4-12.3) fl Neutrophils % (Manual) (40-60) % Band Neutrophils % (0-10) % Lymphocytes % (Manual) (20-40) % Atypical Lymphs % % Immat Monocytes % (Man) Monocytes % (Manual) (2-10) % Eosinophils % (Manual) (0.7-5.8) % Basophils % (Manual) (0.1-1.2) Metamyelocytes % Myelocytes % Promyelocytes % Blast Cells % Plasma Cell % (Manual) Nucleated RBCs % Platelet Estimate RBC Morph Comment D-Dimer, Quantitative (0.19-0.50) mg/L Sodium (136-145) mEq/L Potassium (3.5-5.1) mEq/L Chloride (98-107) mEq/L Carbon Dioxide (21-32) mEq/L Anion Gap (5-15) BUN (7-18) mg/dL Creatinine (0.55-1.02) mg/dL Est Cr Clr Drug Dosing Estimated GFR (MDRD) (>60) mL/min BUN/Creatinine Ratio (14-18) Glucose (70-99) mg/dL Lactic Acid 5.4 H* 3.9 H* (0.4-2.0) mmol/L Calcium (8.5-10.1) mg/dL Total Bilirubin (0.2-1.0) mg/dL AST (15-37) U/L ALT (14-59) U/L Alkaline Phosphatase (46-116) U/L Troponin I (0.00-0.056) ng/mL Total Protein (6.4-8.2) g/dl Albumin (3.4-5.0) g/dl Globulin gm/dL Albumin/Globulin Ratio (1-2) Influenza Type A RNA Negative (NEGATIVE) Influenza Type B RNA Negative (NEGATIVE) SARS-CoV-2 RNA (VANESA) Negative (NEGATIVE) Med Orders - Current: Current Medications Acetaminophen (Acetaminophen 650 Mg Supp) 650 mg RECTAL Q4H PRN PRN Reason: Pain (mild 1-3) Atropine Sulfate (Atropine 1% Ophth Soln 5 Ml Bottle) 0 ml SL Q2H PRN PRN Reason: Excessive secretions Lorazepam (Lorazepam 2 Mg/Ml Sdv) 1.5 mg IVPUSH Q4H PRN PRN Reason: Anxiety Miscellaneous Information (Remove Patch) 0 ea TRDERM Q72H AREN Morphine Sulfate (Morphine 2 Mg/Ml Syringe) 2 mg IVPUSH Q2H PRN PRN Reason: Pain (severe 7-10) Stop: 04/27/21 15:25 Scopolamine (Scopolamine 1.5 Mg Transdermal Patch) 1.5 mg TRDERM Q72H AREN Discontinued Medications Atropine Sulfate (Atropine 1% Ophth Soln 5 Ml Bottle) 0 ml SL ONETIME ONE Stop: 04/26/21 15:28 Sodium Chloride (Normal Saline) 1,000 mls @ 1,000 mls/hr IV ONETIME ONE Stop: 04/26/21 10:15 Last Admin: 04/26/21 09:23 Dose: 1,000 mls/hr Documented by: Sodium Chloride (Normal Saline) 1,000 mls @ 250 mls/hr IV ONETIME ONE Stop: 04/26/21 16:22 Last Admin: 04/26/21 12:52 Dose: Not Given Documented by: Sodium Chloride (Normal Saline) 1,000 mls @ 250 mls/hr IV ONETIME ONE Stop: 04/26/21 16:40 Last Admin: 04/26/21 13:14 Dose: 250 mls/hr Documented by: Lorazepam (Lorazepam 2 Mg/Ml Sdv) 1 mg IVPUSH ONETIME ONE Stop: 04/26/21 13:06 Last Admin: 04/26/21 13:14 Dose: 1 mg Documented by: Lorazepam (Lorazepam 2 Mg/Ml Sdv) 1 mg IVPUSH ONETIME ONE Stop: 04/26/21 15:26 Morphine Sulfate (Morphine 2 Mg/Ml Syringe) 2 mg IVPUSH ONETIME ONE Stop: 04/26/21 15:41 - Exam Physical Findings Comments:: Patient apneic and pulseless
[2021-04-26 17:11] VITALS: BP 86/59; PULSE 49
== END 2021-04-26 17:07 | disposition expired | DRG 951 ==
LOC: JD.ED 08:55 → JD.MS 14:18
PROVIDERS: ADMIT Pediatrics; ATTEND Pediatrics
DX: Z51.5 Encounter for palliative care (principal); A41.9 Sepsis, unspecified organism; R09.02 Hypoxemia; C71.9 Malignant neoplasm of brain, unspecified; R65.21 Severe sepsis with septic shock; J96.01 Acute respiratory failure with hypoxia; J69.0 Pneumonitis due to inhalation of food and vomit; C79.31 Secondary malignant neoplasm of brain; C78.7 Secondary malignant neoplasm of liver and intrahepatic bile duct; C34.91 Malignant neoplasm of unspecified part of right bronchus or lung; C78.00 Secondary malignant neoplasm of unspecified lung; H35.30 Unspecified macular degeneration; I48.91 Unspecified atrial fibrillation; Z66 Do not resuscitate; Z20.822 Contact with and (suspected) exposure to COVID-19; E86.0 Dehydration; E78.5 Hyperlipidemia, unspecified; G47.30 Sleep apnea, unspecified; K21.9 Gastro-esophageal reflux disease without esophagitis; E03.9 Hypothyroidism, unspecified; I10 Essential (primary) hypertension; E78.00 Pure hypercholesterolemia, unspecified; Z91.041 Radiographic dye allergy status; Z99.81 Dependence on supplemental oxygen; Z91.012 Allergy to eggs; Z88.0 Allergy status to penicillin; Z88.8 Allergy status to other drugs, medicaments and biological substances; Z79.82 Long term (current) use of aspirin; Z79.890 Hormone replacement therapy; Z79.899 Other long term (current) drug therapy; Z90.49 Acquired absence of other specified parts of digestive tract; Z90.710 Acquired absence of both cervix and uterus; Z88.4 Allergy status to anesthetic agent; Z79.52 Long term (current) use of systemic steroids; Z86.16 Personal history of COVID-19
CPT/HCPCS: 0240U; 36415; 71045; 80053; 83605; 84484; 85007; 85027; 85379; 87040; 93005; 94761; 94762; 87150; 96374; 99285-25; J2060; J7030